=== PATIENT | male | born 1945 | race Caucasian/White ===

== ENCOUNTER 2024-01-15 13:47 | Inpatient (IN) ==
--- NOTE | 2024-01-15 14:31 | Emergency Department Note ---
History of Present Illness General Chief complaint: Abdominal Pain Stated complaint: SOB Time Seen by Provider: 01/15/24 13:48 History of Present Illness Maximum Pain Intensity: 10 Patient presenting with concern of increased dyspnea in the setting of increasing abdominal distension d/t known liver cancer and cirrhosis. Last paracentesis 2 weeks ago, typically follows at [facility] in [place]. Patient was examined at bedside and workup was ordered as indicated. Records remain pending from [facility] in [place]. Unable to perform US guided paracentesis in ED d/t insufficient pocket. Patient seen in concert with Dr. Daniele Alonso. Further documentation will be provided in ED physician note. Home Medications Medication Instructions Recorded Confirmed Type Glargine Insulin 50 unit SC DAILY 06/27/22 06/27/22 History aspirin 81 mg tablet,delayed 81 mg PO DAILY 06/27/22 06/27/22 History release gabapentin 400 mg capsule 1,200 mg PO TID 06/27/22 06/27/22 History lisinopril 10 mg tablet 10 mg PO BID 06/27/22 06/27/22 History metformin 1,000 mg tablet 1,000 mg PO BID 06/27/22 06/27/22 History metoprolol tartrate 25 mg tablet 12.5 mg PO BID 06/27/22 06/27/22 History nirmatrelvir 300 mg (150 mg See Rx Instructions PO .COMPLEX 06/27/22 Rx x2)-ritonavir 100 mg tablet,dose #30 ea pack (Paxlovid) semaglutide 0.25 mg or 0.5 mg (2 0.5 mg subcut WK 06/27/22 06/27/22 History mg/1.5 mL) subcutaneous pen injector (Ozempic) simvastatin 80 mg tablet 40 mg PO HS 06/27/22 06/27/22 History tramadol 50 mg tablet 100 mg PO TID 06/27/22 06/27/22 History vit C 226 mg-vit E 90 mg-copper 1 cap PO BID 06/27/22 06/27/22 History 0.8 mg-zinc oxide-lutein 5 mg capsule (PreserVision Lutein) nirmatrelvir 300 mg (150 mg See Rx Instructions PO .COMPLEX 06/28/22 Rx x2)-ritonavir 100 mg tablet,dose #30 ea pack (Paxlovid) Allergies Allergy/AdvReac Type Severity Reaction Status Date / Time No Known Allergies Allergy Unverified 01/15/24 15:14 Past Med/Surg History Problem List (Updated 01/15/24 @ 15:25 by Lindsey Rojas DO) Abdominal ascites Hyperlipidemia Liver mass, left lobe Tobacco use PTSD (post-traumatic stress disorder) Osteoarthritis Hypertension GERD (gastroesophageal reflux disease) Neuropathy due to type 2 diabetes mellitus Liver cancer Type 2 diabetes mellitus Medical History (Updated 01/15/24 @ 15:25 by Lindsey Rojas DO) Ascites COVID-19 Cirrhosis Social History (System 01/15/24 @ 15:14 by Julissa Cool) Smoking Status: Current every day smoker Tobacco Type: Cigarettes Feels Safe at Home: Yes Physical Exam Vital Signs Vital Signs - 24 hr 01/15/24 13:40 01/15/24 14:01 01/15/24 14:07 Temperature 36.4 C L Temperature Source Oral Pulse Rate 83 85 Pulse Rate [Right Finger] 84 Pulse Rhythm Regular Regular Pulse Rhythm [Right Finger] Regular Pulse Strength Normal Pulse Strength [Right Finger] Normal Respiratory Rate 20 20 26 H Respiratory Effort / Characteristics Non-Labored Non-Labored Respiratory Depth Normal Normal Respiratory Pattern Regular Regular Blood Pressure 135/65 Blood Pressure [Right Arm] 135/65 Blood Pressure Mean 88 Blood Pressure Mean [Right Arm] 88 Blood Pressure Position Lying Blood Pressure Position [Right Arm] Lying Pulse Oximetry 99 97 98 Oxygen Delivery Method Nasal Cannula Nasal Cannula Nasal Cannula Oxygen Flow Rate 4 4 4 Sepsis Recent Fever Within 48 Hours No Sepsis New/Unexplained Change in Mental Status No Sepsis Action Taken by Nursing No Action Required 01/15/24 14:28 01/15/24 14:35 Temperature Temperature Source Pulse Rate 83 Pulse Rate [Right Finger] 83 Pulse Rhythm Pulse Rhythm [Right Finger] Regular Pulse Strength Pulse Strength [Right Finger] Normal Respiratory Rate 19 Respiratory Effort / Characteristics Non-Labored Respiratory Depth Normal Respiratory Pattern Regular Blood Pressure Blood Pressure [Right Arm] 125/67 Blood Pressure Mean Blood Pressure Mean [Right Arm] 86 Blood Pressure Position Blood Pressure Position [Right Arm] Lying Pulse Oximetry 96 Oxygen Delivery Method Nasal Cannula Oxygen Flow Rate 4 Sepsis Recent Fever Within 48 Hours Sepsis New/Unexplained Change in Mental Status Sepsis Action Taken by Nursing See attending note. Course Administered Medications Discontinued Medications Pantoprazole Sodium 40 mg/ (Syringe) 10 mls @ 5 mls/min IV NOW ONE Stop: 01/15/24 14:20 Last Admin: 01/15/24 14:54 Dose: 5 mls/min Documented By: JUDY Insulin Glargine (Lantus Per Unit Charge) 66 units SQ NOW STA Stop: 01/15/24 15:18 Last Admin: 01/15/24 15:48 Dose: 66 units Documented By: TSERING Co-signed By: BARRY Ondansetron HCl (Ondansetron Inj 2 Mg/Ml 2 Ml Vial) 4 mg IV NOW STA Stop: 01/15/24 14:20 Last Admin: 01/15/24 14:32 Dose: 4 mg Documented By: JUDY Medical Decision Making Differential Diagnosis Abdominal ascites Liver Cirrhosis Liver Cancer Laboratory Data 01/15/24 14:21 01/15/24 14:21 Lab Results 01/15/24 Range/Units 14:21 WBC 7.73 (4.8-10.8) K/ul RBC 3.62 L (4.70-6.10) M/uL Hgb 10.0 L (14.0-18.0) g/dl Hct 31.2 L (42.0-52.0) % MCV 86.2 (80.0-100.0) fL MCH 27.6 (25.0-34.0) pg MCHC 32.1 (32.0-36.0) g/dL RDW Std Deviation 54.0 H (36.4-46.3) fL RDW Coeff of Maurice 17.1 H (11.5-14.5) % Plt Count 146 (130-400) K/uL MPV 10.6 (9.4-12.4) fL Immature Gran % (Auto) 0.4 % Neut % (Auto) 70.3 % Lymph % (Auto) 17.5 % [place] % (Auto) 10.9 % Eos % (Auto) 0.6 % Baso % (Auto) 0.3 % Neut # (Auto) 5.44 (1.40-6.50) K/uL Lymph # (Auto) 1.35 (1.20-3.40) K/uL [place] # (Auto) 0.84 H (0.11-0.59) K/uL Eos # (Auto) 0.05 (0.00-0.50) K/uL Baso # (Auto) 0.02 (0.00-0.20) K/uL Immature Gran # (Auto) 0.03 (0.01-0.20) K/uL PT 11.0 (9.0-12.0) Seconds INR 1.0 (0.9-1.1) Sodium 134 L (136-145) mmol/L Potassium 4.6 (3.5-5.1) mmol/L Chloride 102 (98-107) mmol/L Carbon Dioxide 27 (21-32) mmol/L Anion Gap 5 (3-11) BUN 29 H (6-23) mg/dl Creatinine 1.11 (0.6-1.4) mg/dl Est Cr Clr Drug Dosing 61.5 ml/min Est GFR ( Amer) 74.4 ml/min Est GFR (Non-Af Amer) 64.2 ml/min BUN/Creatinine Ratio 26.1 H (10-20) Glucose 343 H* (70-99(Fasting)) mg/dl Calcium 8.5 L (8.6-10.3) mg/dl Magnesium 2.1 (1.7-2.4) mg/dl Total Bilirubin 0.6 (0.2-1.0) mg/dl Direct Bilirubin 0.2 (0-0.2) mg/dl AST 34 (13-39) U/L ALT 28 (7-52) U/L Alkaline Phosphatase 191 H (34-104) U/L Total Protein 6.3 (6.0-8.3) gm/dl Albumin 2.9 L (3.4-5.0) gm/dl Globulin 3.4 (2.5-4.0) gm/dl Albumin/Globulin Ratio 0.9 (0.9-2) Imaging Data Radiologist's Impression: Chest X-Ray 01/15/24 14:00 XR chest 2V PA/lateral HISTORY: 78 years-old Male Dyspnea acute shortness of breath COMPARISON: 06/27/2022 TECHNIQUE: AP and lateral views of the chest FINDINGS: Hypoinflation. Heart size upper limits of normal in size. Bronchovascular crowding. No pneumothorax or pleural effusion. The bones appear intact. IMPRESSION: Hypoinflation without acute process identified. ACT 112: Negative or not required by law. The above report was generated using voice recognition software. It may contain grammatical, syntax or spelling errors. Electronically signed by: Nestor Smith M.D. 01/15/2024 3:53 PM KUB X-Ray 01/15/24 14:00 KUB CLINICAL HISTORY: Ascites/Abdominal Pain COMPARISON STUDY: None. FINDINGS: The bowel gas pattern is normal. The amount of stool is within normal limits. There is moderate vascular calcification. A few small peripherally calcified densities within the abdomen and pelvis are benign. IMPRESSION: No evidence for a bowel obstruction. ACT 112: Negative or not required by law. Electronically signed by: Daryl Mercado M.D. 01/15/2024 3:32 PM Abdomen Ultrasound 01/15/24 14:26 US abdomen ltd ascites CLINICAL HISTORY: Marking for Paracentesis in ED COMPARISON STUDY: None. FINDINGS: Transabdominal scanning of the abdomen was performed with telemarketing representative images submitted. There is a small amount of ascites seen scattered throughout the abdomen. This was not marked for paracentesis due to the lack of an adequate sized pocket. IMPRESSION: Small amount of ascites. ACT 112: Negative or not required by law. Electronically signed by: Mack Hadley M.D. 01/15/2024 3:25 PM MDM Narrative See attending note. Impression & Plan Ascites Discharge Plan Forms Stand Alone Forms: My [facility] Prescriptions Prescriptions: No Action gabapentin 400 mg Capsule 1,200 mg PO TID aspirin [Aspir-Low] 81 mg Tablet,Delayed Release (Dr/Ec) 81 mg PO DAILY Rx Instructions: PER [facility] simvastatin 80 mg Tablet 40 mg PO HS tramadol 50 mg Tablet 100 mg PO TID metformin 1,000 mg Tablet 1,000 mg PO BID lisinopril 10 mg Tablet 10 mg PO BID metoprolol tartrate 25 mg Tablet 12.5 mg PO BID PreserVision Lutein 226-90-0.8-5 mg Capsule 1 cap PO BID Ozempic 0.25 mg or 0.5 mg(2 mg/1.5 mL) Pen Injector 0.5 mg SUBCUT WK Glargine Insulin 50 unit SC DAILY Paxlovid 300 mg (150 mg x 2)-100 mg tablets,dose pack See Rx Instructions .ROUTE .COMPLEX Qty: 30 0RF Rx Instructions: take TWO 150 mg tablets of nirmatrelvir with ONE 100 mg tablet of ritonavir twice daily for 5 days Paxlovid 300 mg (150 mg x 2)-100 mg tablets,dose pack See Rx Instructions .ROUTE .COMPLEX Qty: 30 0RF Rx Instructions: take TWO 150 mg tablets of nirmatrelvir with ONE 100 mg tablet of ritonavir twice daily for 5 days Referrals Referrals: PCP,NO [Primary Care Provider] - Resident Activity Tracking Resident Involvement: Resident Care Provided Care Provided: Adult Hospital Medicine
[2024-01-15 14:32] LABS: Basophils # (auto) 0.02 K/uL (0.00-0.20); Basophils % (auto) 0.3 %; Eosinophils # (auto) 0.05 K/uL (0.00-0.50); Eosinophils % (auto) 0.6 %; Hematocrit (blood only) 31.2 % (42.0-52.0); Immature Granulocytes # (auto) 0.03 K/uL (0.01-0.20); Immature Granulocytes % (auto) 0.4 %; Lymphocytes # (auto) 1.35 K/uL (1.20-3.40); Lymphocytes % (auto) 17.5 %; Mean Corpuscular Hemoglobin 27.6 pg (25.0-34.0); Mean Corpuscular Hgb Conc 32.1 g/dL (32.0-36.0); Mean Corpuscular Volume 86.2 fL (80.0-100.0); Mean Platelet Volume 10.6 fL (9.4-12.4); Monocytes # (auto) 0.84 K/uL (0.11-0.59); Monocytes % (auto) 10.9 %; Neutrophils # (auto) 5.44 K/uL (1.40-6.50); Neutrophils % (auto) 70.3 %; Platelet Count 146 K/uL (130-400); RDW Coefficient of Variation 17.1 % (11.5-14.5); Red Blood Count 3.62 M/uL (4.70-6.10); White Blood Count 7.73 K/ul (4.8-10.8)
[2024-01-15] MEDS: ONDANSETRON INJ 2 MG/ML 2 ML VIAL IV STA (14:32)
--- NOTE | 2024-01-15 14:42 | Emergency Department Note ---
Impression & Plan Ascites, Abdominal pain, SOB (shortness of breath) ED Provider Note NAME: VENKAT SEGOVIA AGE: 78 SEX: M : 1945 ARRIVES VIA: Ambulance INFORMANT: Patient, ED PROVIDER(S): Latrell Alonso DO CHIEF COMPLAINT: Abdominal pain HPI: The patient is a 78-year-old male who presented to the emergency department for abdominal pain and distention. The patient has a history of liver failure and cirrhosis. He has a history of ascites and multiple paracentesis in the past. He has been noticing worsening abdominal distention. He describes no fever but does note some abdominal pain. The patient called 911 because he felt as though he was having difficulty breathing because of the amount of ascites. He denies having any chest pain at this time. He denies having any black stool. ROS: See above HPI for pertinent positives & negatives. A total of 10 systems reviewed and were otherwise negative. PAST MEDICAL HISTORY: See Below PAST SURGICAL HISTORY: See Below FAMILY HISTORY: See Below SOCIAL HISTORY: See Below HOME MEDICATIONS: See Below ALLERGIES: See Below VITALS: See Below PHYSICAL EXAMINATION: GENERAL: Patient is awake alert in no acute distress patient is resting comfortably and showing no signs of anxiety EYES: The conjunctivae are clear. The pupils are round and reactive. EARS, NOSE, MOUTH AND THROAT: The nose is without any evidence of any deformity. Mucous membranes are moist. Tongue is midline. NECK: The neck is nontender and supple. RESPIRATORY: Normal respiratory effort is noted there is no evidence of wheezing rhonchi or rales CARDIOVASCULAR: Regular rate and rhythm noted there no murmurs rubs or gallops normal S1 normal S2. GASTROINTESTINAL: Abdomen was distended. There was diffuse tenderness noted but no guarding or rigidity. MUSCULOSKELETAL/EXTREMITIES: There is no evidence of gross deformity full range of motion is noted in the hips and shoulders. SKIN: Skin was warm and dry. Trace pedal edema was noted bilaterally. NEUROLOGIC: Patient is awake alert and oriented x3 MEDICAL DECISION MAKING: The patient is a 78-year-old male who presented to the emergency department for an evaluation of abdominal pain and difficulty breathing. The patient is a history of cirrhosis and ascites. He has a history of previous paracentesis. The patient had an ultrasound but no significant pocket of fluid was located. The patient was having significant symptoms with his ascites despite not having a large amount. I discussed patient's laboratory and radiographic studies with him. We did discuss his case with interventional radiology. They state they would be able to do a drainage of his ascites tomorrow morning. I feel would be prudent to have this done under interventional radiology given the patient's findings on ultrasound today. The case was discussed with the on-call [facility] hospitalist. Triage Nursing notes reviewed. Prior medical records reviewed Vital Signs: reviewed and remarkable for no significant abnormalities Differential diagnosis: Etiologies such as appendicitis, diverticulitis, obstruction, inflammatory bowel disease, renal colic, PUD, biliary pathology, pancreatitis, mesenteric ischemia, aortic pathology, infections, genitourinary, UTI, perforated viscus, as well as others were entertained. ER treatment provided: See below Diagnostics interpreted by me: ECG: EKG was obtained in the emergency department. My interpretation is sinus rhythm at 85 bpm. First-degree AV block was noted. Nonspecific interventricular conduction delay with anterior Q waves was noted. No previous tracing was available. Cardiac Monitoring: An order was placed for continuous cardiac monitoring. The monitor shows a rate of 82 bpm with sinus rhythm. Laboratory studies: As stated above and show below. Imaging studies: See below. Radiographic imaging was reviewed by myself Consultation(s): We discussed this case with Dr. Regan who is on-call for the [facility] hospitalist group. Past Med/Surg History Problem List (Updated 01/15/24 @ 18:23 by Latrell Alonso DO) SOB (shortness of breath) (Acute) Abdominal pain (Acute) Ascites (Acute) Abdominal ascites Hyperlipidemia Liver mass, left lobe Tobacco use PTSD (post-traumatic stress disorder) Osteoarthritis Hypertension GERD (gastroesophageal reflux disease) Neuropathy due to type 2 diabetes mellitus Liver cancer Type 2 diabetes mellitus Medical History (Updated 01/15/24 @ 18:23 by Latrell Alonso DO) Ascites COVID-19 Cirrhosis Social History (System 01/15/24 @ 15:14 by Julissa Cool) Smoking Status: Current every day smoker Tobacco Type: Cigarettes Feels Safe at Home: Yes Allergies Allergies Allergy/AdvReac Type Severity Reaction Status Date / Time No Known Allergies Allergy Unverified 01/15/24 15:14 Home Meds Home Medications Medication Instructions Recorded Confirmed Semaglutide 1mg/0.75 Ml 1 dose SC .WEEKLY 01/15/24 01/15/24 Thc Gummies 1 tab PO DIRECTED PRN Pain 01/15/24 01/15/24 capsaicin 0.025 % topical cream 1 applic topical BID PRN .flare up 01/15/24 01/15/24 furosemide 40 mg tablet 40 mg PO DAILY 01/15/24 01/15/24 insulin glargine 100 unit/mL (3 66 unit subcut DAILY 01/15/24 01/15/24 mL) subcutaneous pen (Lantus Solostar U-100 Insulin) lactulose 10 gram/15 mL oral 20 g PO QID 01/15/24 01/15/24 solution metformin 1,000 mg tablet 1,000 mg PO BID 01/15/24 01/15/24 metoprolol tartrate 25 mg tablet 12.5 mg PO BID 01/15/24 01/15/24 naloxone 8 mg/actuation nasal spray 1 spray intranasal DIRECTED PRN 01/15/24 01/15/24 .opiod od ondansetron HCl 8 mg tablet 4 mg PO Q8 PRN Nausea 01/15/24 01/15/24 oxycodone 5 mg tablet 5 mg PO Q6H PRN Pain 01/15/24 01/15/24 polyethylene glycol 3350 17 gram 17 g PO DAILY 01/15/24 01/15/24 oral powder packet (Miralax) pregabalin 150 mg capsule 150 mg PO BID 01/15/24 01/15/24 sennosides 8.6 mg tablet 17.2 mg PO BID 01/15/24 01/15/24 simvastatin 80 mg tablet 40 mg PO HS 01/15/24 01/15/24 spironolactone 100 mg tablet 100 mg PO DAILY 01/15/24 01/15/24 vitamins A,C,M-pgcx-tiqlun 2,148 1 tab PO BID 01/15/24 01/15/24 mcg-113 mg-45 mg-17.4 mg tablet (PreserVision AREDS) Results & Data (ED) Vital Signs Vital Signs - 24 hr 01/15/24 13:40 01/15/24 14:01 01/15/24 14:07 Temperature 36.4 C L Temperature Source Oral Pulse Rate 83 85 Pulse Rate [Right Finger] 84 Pulse Rate from SpO2 Sensor Pulse Rhythm Regular Regular Pulse Rhythm [Right Finger] Regular Pulse Strength Normal Pulse Strength [Right Finger] Normal Respiratory Rate 20 20 26 H Respiratory Effort / Characteristics Non-Labored Non-Labored Respiratory Depth Normal Normal Respiratory Pattern Regular Regular Blood Pressure 135/65 Blood Pressure [Right Arm] 135/65 Blood Pressure Mean 88 Blood Pressure Mean [Right Arm] 88 Blood Pressure Position Lying Blood Pressure Position [Right Arm] Lying Pulse Oximetry 99 97 98 Oxygen Delivery Method Nasal Cannula Nasal Cannula Nasal Cannula Oxygen Flow Rate 4 4 4 Sepsis Recent Fever Within 48 Hours No Sepsis New/Unexplained Change in Mental Status No Sepsis Action Taken by Nursing No Action Required 01/15/24 14:28 01/15/24 14:35 01/15/24 16:00 Temperature Temperature Source Pulse Rate 83 84 Pulse Rate [Right Finger] 83 Pulse Rate from SpO2 Sensor 85 Pulse Rhythm Pulse Rhythm [Right Finger] Regular Pulse Strength Pulse Strength [Right Finger] Normal Respiratory Rate 19 22 Respiratory Effort / Characteristics Non-Labored Respiratory Depth Normal Respiratory Pattern Regular Blood Pressure Blood Pressure [Right Arm] 125/67 Blood Pressure Mean Blood Pressure Mean [Right Arm] 86 Blood Pressure Position Blood Pressure Position [Right Arm] Lying Pulse Oximetry 96 100 Oxygen Delivery Method Nasal Cannula Nasal Cannula Oxygen Flow Rate 4 Sepsis Recent Fever Within 48 Hours Sepsis New/Unexplained Change in Mental Status Sepsis Action Taken by Nursing 01/15/24 17:00 01/15/24 18:17 Temperature Temperature Source Pulse Rate 80 82 Pulse Rate [Right Finger] Pulse Rate from SpO2 Sensor 78 Pulse Rhythm Pulse Rhythm [Right Finger] Pulse Strength Pulse Strength [Right Finger] Respiratory Rate 16 Respiratory Effort / Characteristics Respiratory Depth Respiratory Pattern Blood Pressure Blood Pressure [Right Arm] Blood Pressure Mean Blood Pressure Mean [Right Arm] Blood Pressure Position Blood Pressure Position [Right Arm] Pulse Oximetry 100 Oxygen Delivery Method Nasal Cannula Oxygen Flow Rate Sepsis Recent Fever Within 48 Hours Sepsis New/Unexplained Change in Mental Status Sepsis Action Taken by [facility] Medications Current Medication List: was personally reviewed by me Laboratory Data Attestation: I reviewed the patient's lab results. 01/15/24 14:21 01/15/24 14:21 Lab Results 01/15/24 01/15/24 Range/Units 14:21 18:01 WBC 7.73 (4.8-10.8) K/ul RBC 3.62 L (4.70-6.10) M/uL Hgb 10.0 L (14.0-18.0) g/dl Hct 31.2 L (42.0-52.0) % MCV 86.2 (80.0-100.0) fL MCH 27.6 (25.0-34.0) pg MCHC 32.1 (32.0-36.0) g/dL RDW Std Deviation 54.0 H (36.4-46.3) fL RDW Coeff of Maurice 17.1 H (11.5-14.5) % Plt Count 146 (130-400) K/uL MPV 10.6 (9.4-12.4) fL Immature Gran % (Auto) 0.4 % Neut % (Auto) 70.3 % Lymph % (Auto) 17.5 % [place] % (Auto) 10.9 % Eos % (Auto) 0.6 % Baso % (Auto) 0.3 % Neut # (Auto) 5.44 (1.40-6.50) K/uL Lymph # (Auto) 1.35 (1.20-3.40) K/uL [place] # (Auto) 0.84 H (0.11-0.59) K/uL Eos # (Auto) 0.05 (0.00-0.50) K/uL Baso # (Auto) 0.02 (0.00-0.20) K/uL Immature Gran # (Auto) 0.03 (0.01-0.20) K/uL PT 11.0 (9.0-12.0) Seconds INR 1.0 (0.9-1.1) Sodium 134 L (136-145) mmol/L Potassium 4.6 (3.5-5.1) mmol/L Chloride 102 (98-107) mmol/L Carbon Dioxide 27 (21-32) mmol/L Anion Gap 5 (3-11) BUN 29 H (6-23) mg/dl Creatinine 1.11 (0.6-1.4) mg/dl Est Cr Clr Drug Dosing 61.5 ml/min Est GFR ( Amer) 74.4 ml/min Est GFR (Non-Af Amer) 64.2 ml/min BUN/Creatinine Ratio 26.1 H (10-20) Glucose 343 H* (70-99(Fasting)) mg/dl POC Glucose 318 H* (70-99) mg/dl Calcium 8.5 L (8.6-10.3) mg/dl Magnesium 2.1 (1.7-2.4) mg/dl Total Bilirubin 0.6 (0.2-1.0) mg/dl Direct Bilirubin 0.2 (0-0.2) mg/dl AST 34 (13-39) U/L ALT 28 (7-52) U/L Alkaline Phosphatase 191 H (34-104) U/L Total Protein 6.3 (6.0-8.3) gm/dl Albumin 2.9 L (3.4-5.0) gm/dl Globulin 3.4 (2.5-4.0) gm/dl Albumin/Globulin Ratio 0.9 (0.9-2) Administered Medications Discontinued Medications Pantoprazole Sodium 40 mg/ (Syringe) 10 mls @ 5 mls/min IV NOW ONE Stop: 01/15/24 14:20 Last Admin: 01/15/24 14:54 Dose: 5 mls/min Documented By: JUDY Insulin Glargine (Lantus Per Unit Charge) 66 units SQ NOW STA Stop: 01/15/24 15:18 Last Admin: 01/15/24 15:48 Dose: 66 units Documented By: TSERING Co-signed By: BARRY Ondansetron HCl (Ondansetron Inj 2 Mg/Ml 2 Ml Vial) 4 mg IV NOW STA Stop: 01/15/24 14:20 Last Admin: 01/15/24 14:32 Dose: 4 mg Documented By: JUDY Imaging Data Attestation: I personally reviewed and interpreted this imaging study as follows: My Impression: 1 view chest x-ray was obtained in the emergency department. My interpretation is no free air or definite infiltrate, final report below. CT of the abdomen and pelvis was obtained. My interpretation is ascites noted especially in the right upper quadrant, there was no signs of bowel obstruction, final report pending. Radiologist's Impression: Chest X-Ray 01/15/24 14:00 XR chest 2V PA/lateral HISTORY: 78 years-old Male Dyspnea acute shortness of breath COMPARISON: 06/27/2022 TECHNIQUE: AP and lateral views of the chest FINDINGS: Hypoinflation. Heart size upper limits of normal in size. Bronchovascular crowding. No pneumothorax or pleural effusion. The bones appear intact. IMPRESSION: Hypoinflation without acute process identified. ACT 112: Negative or not required by law. The above report was generated using voice recognition software. It may contain grammatical, syntax or spelling errors. Electronically signed by: Nestor Smith M.D. 01/15/2024 3:53 PM KUB X-Ray 01/15/24 14:00 KUB CLINICAL HISTORY: Ascites/Abdominal Pain COMPARISON STUDY: None. FINDINGS: The bowel gas pattern is normal. The amount of stool is within normal limits. There is moderate vascular calcification. A few small peripherally calcified densities within the abdomen and pelvis are benign. IMPRESSION: No evidence for a bowel obstruction. ACT 112: Negative or not required by law. Electronically signed by: Daryl Mercado M.D. 01/15/2024 3:32 PM Abdomen Ultrasound 01/15/24 14:26 abdomen ltd ascites CLINICAL HISTORY: Marking for Paracentesis in ED COMPARISON STUDY: None. FINDINGS: Transabdominal scanning of the abdomen was performed with patient representative images submitted. There is a small amount of ascites seen scattered throughout the abdomen. This was not marked for paracentesis due to the lack of an adequate sized pocket. IMPRESSION: Small amount of ascites. ACT 112: Negative or not required by law. Electronically signed by: Mack Hadley M.D. 01/15/2024 3:25 PM Discharge Plan Visit Data Chief Complaint: Abdominal Pain Stated Complaint: SOB ED Provider: Latrell Alonso ED Midlevel Provider: Lindsey Rojas Discharge Problem: Ascites, Abdominal pain, SOB (shortness of breath) Patient Disposition: Being Evaluated by Hospitalist Forms Stand Alone Forms: My [facility] [employer] Prescriptions Prescriptions: No Action furosemide 40 mg Tablet 40 mg PO DAILY sennosides 8.6 mg Tablet 17.2 mg PO BID polyethylene glycol 3350 [Miralax] 17 gram Powder In Packet 17 g PO DAILY ondansetron HCl 8 mg Tablet 4 mg PO Q8 PRN (Reason: Nausea) spironolactone 100 mg Tablet 100 mg PO DAILY simvastatin 80 mg Tablet 40 mg PO HS metformin 1,000 mg Tablet 1,000 mg PO BID capsaicin 0.025 % Cream 1 applic TOPICAL BID PRN (Reason: .flare up) Rx Instructions: do not wash area for at least 30 min after application oxycodone [Roxicodone] 5 mg Tablet 5 mg PO Q6H PRN (Reason: Pain) metoprolol tartrate 25 mg Tablet 12.5 mg PO BID lactulose 10 gram/15 mL Solution 20 g PO QID Rx Instructions: Has been taking less due to to loose stool. pregabalin 150 mg Capsule 150 mg PO BID insulin glargine [Lantus Solostar U-100 Insulin] 100 unit/mL (3 mL) Insulin Pen 66 unit SUBCUT DAILY PreserVision AREDS 2,148 mcg-113 mg-45 mg-17.4mg Tablet 1 tab PO BID Rx Instructions: administer with AM and PM meals naloxone 8 mg/actuation [place],Non-Aerosol 1 spray INTRANASAL DIRECTED PRN (Reason: .opiod od) Semaglutide 1mg/0.75 Ml 1 dose SC .WEEKLY Rx Instructions: Q friday Thc Gummies 1 tab PO DIRECTED PRN (Reason: Pain) Referrals Referrals: PCP,NO [Physician] - Discharge Problem: Ascites Qualifiers: Ascites type: other type Qualified Code(s): R18.8 - Other ascites Abdominal pain Qualifiers: Abdominal location: generalized Qualified Code(s): R10.84 - Generalized abdominal pain
[2024-01-15] MEDS: PANTOprazole 40 MG in SYRINGE 0 ML IV ONE (14:54)
[2024-01-15 14:58] LABS: Albumin Globulin Ratio 0.9 (0.9-2); Albumin Level 2.9 gm/dl (3.4-5.0); BUN Creatinine Ratio 26.1 (10-20); Bilirubin Direct 0.2 mg/dl (0-0.2); Bilirubin,Total 0.6 mg/dl (0.2-1.0); Calcium 8.5 mg/dl (8.6-10.3); Creatinine Clr Calc Pharmacy 61.5 ml/min; Est GFR (African American) 74.4 ml/min; Est GFR (Non-African American) 64.2 ml/min; Globulin 3.4 gm/dl (2.5-4.0); Magnesium 2.1 mg/dl (1.7-2.4); Potassium 4.6 mmol/L (3.5-5.1); Total Protein 6.3 gm/dl (6.0-8.3)
--- NOTE | 2024-01-15 15:27 | Ultrasound Report ---
US abdomen ltd ascites CLINICAL HISTORY: Marking for Paracentesis in ED COMPARISON STUDY: None. FINDINGS: Transabdominal scanning of the abdomen was performed with agency service representative images submitted. There is a small amount of ascites seen scattered throughout the abdomen. This was not marked for par acentesis due to the lack of an adequate sized pocket. IMPRESSION: Small amount of ascites. ACT 112: Negative or not required by law. Electronically signed by: Mack Hadley M.D. 01/15/2024 3:25 PM
--- NOTE | 2024-01-15 15:33 | XRay Report ---
KUB CLINICAL HISTORY: Ascites/Abdominal Pain COMPARISON STUDY: None. FINDINGS: The bowel gas pattern is normal. The amount of stool is within normal limits. There is mode rate vascular calcification. A few small peripherally calcified densities within the abdomen and pelv is are benign. IMPRESSION: No evidence for a bowel obstruction. ACT 112: Negative or not required by law. Electronically signed by: Daryl Mercado M.D. 01/15/2024 3:32 PM
[2024-01-15] MEDS: LANTUS PER UNIT CHARGE SQ STA (15:48)
--- NOTE | 2024-01-15 15:54 | XRay Report ---
XR chest 2V PA/lateral HISTORY: 78 years-old Male Dyspnea acute shortness of breath COMPARISON: 06/27/2022 TECHNIQUE: AP and lateral views of the chest FINDINGS: Hypoinflation. Heart size upper limits of normal in size. Bronchovascular crowding. No pneumothorax o r pleural effusion. The bones appear intact. IMPRESSION: Hypoinflation without acute process identified. ACT 112: Negative or not required by law. The above report was generated using voice recognition software. It may contain grammatical, syntax o r spelling errors. Electronically signed by: Nestor Smith M.D. 01/15/2024 3:53 PM
[2024-01-15] MEDS ORDERED: GLUCOSE 40% GEL 15 GM TUBE PO PRN (17:33)
[2024-01-15] MEDS ORDERED: GLUCAGON FOR INJ 1 MG VIAL SQ PRN (17:33)
[2024-01-15] MEDS ORDERED: DEXTROSE 50% 50 ML SYRINGE IV PRN (17:33)
[2024-01-15] MEDS ORDERED: CARBOHYDRATES FOR HYPOGLYCEMIA PO PRN (17:33)
[2024-01-15] MEDS ORDERED: GLUCOSE 10 TAB/TUBE PO PRN (17:33)
--- NOTE | 2024-01-15 17:41 | History & Physical Report ---
Date of Service January 15, 2024 Assessment & Plan (1) Liver cancer: Plan: Abdominal pain x 1 month Patient recently hospitalized at AL in [place] and diagnosed with nonoperable, primary left lobe liver cancer Requested records; unavailable at time of admission Patient had an EGD done at that time, which daughter reports was negative for esophageal varices Paracentesis x 2; he reported initial relief with drainage, but then fluid would recur accumulate within 3-4 hours and symptoms would return Fluid analysis did not reveal SBP at that time, per daughter A/P CT re-demonstrated 5.4 cm livermass; main portal vein appears to be thrombosed Goals of care discussion at the bedside; patient is clear that he would like to focus on quality of life over quantity, and that his goals to meet goals are to be comfortable and at home Palliative care consult appreciated Oncology consult appreciated Oxycodone as needed for pain Continue pregabalin BID Continue lactulose QID A.m. CBC, CMP, PT/INR, mag (2) Abdominal ascites: Plan: IR consulted for paracentesis (morning of 01/15 if possible) Hold Lasix, spironolactone prior to paracentesis, then can resume pending BP (3) Portal vein thrombosis: Plan: Not currently on blood thinners Limited records from [facility] show that portal vein thrombosis was present on 12/30/2023; unclear why anticoagulation was not provided at that time (records from [facility] are still pending) Will defer blood thinners temporarily in the setting of paracentesis, then plan to start if indicated (4) SOB (shortness of breath): Plan: Patient reports he feels like the fluid in the stomach is pressing down on his lungs Continuous pulse oximetry Supplemental oxygen as needed to maintain SpO2 >94% (5) Type 2 diabetes mellitus: Plan: No A1c on file Hold metformin, semaglutide Patient reports he takes Lantus 66 units HS Continue Lantus 66 daily + SSI while inpatient Clear liquid diet for now BSG ACHS Adjust regimen as needed (6) Tobacco use: Plan: Current everyday tobacco cigarette smoker Patient declines nicotine patch at time of admission (7) Hypertension: Plan: Continue metoprolol (8) GERD (gastroesophageal reflux disease): Plan [facility] Clear liquid diet, then n.p.o. at midnight for paracentesis PT PPx: Teds; patient may exhibit portal vein thrombosis, will hold chemical DVT PPx in the setting of likely paracentesis on 01/15 History of Present Illness Chief Complaint: Abdominal pain, liver cancer Primary Care Provider: [facility] Anibal is a 78-year-old male with PMH of liver cancer, abdominal ascites, HLD, HLD, T2DM, GERD, HTN, osteoarthritis, and tobacco use. He presented on 01/14 for SOB and abdominal distention. Recent diagnosis of liver cancer 3 weeks ago; on December 29, he was transferred from the AL in [place] to [place] where he was hospitalized; paracentesis x 2 to have fluid removed. Patient's daughter (Beth) is at the bedside and provides most the history. She reports that he had 2 weeks of abdominal pain prior to going to the [facility]. While in [place], the patient was then diagnosed with primary liver cancer in the left lobe; nonoperable. Biopsy was taken at that time. EGD was done, and daughter reports that it came back without esophageal varices. She does not believe that portal vein thrombosis or blood thinners were discussed at that time. Upon discharge, daughter reports that the discharge paperwork was unclear and they were waiting to hear her options moving forward (chemo, palliative care, goals of care discussions). 5 days later the patient is having trouble breathing and intractable abdominal pain, so they decided to come here. The patient endorses 8/10 RLQ abdominal pain with radiation to the back; 10/10 at worst. He describes it as a stabbing pain. He has been taking THC Gummies at home for the pain, he does have oxycodone but has not been taking it. The pain is actually better when he lies on his back. Eating does not exacerbate pain. No recent change in diet. He does not weigh himself daily and is unsure of weight gain. Associated symptoms include SOB, which patient attributes to fluid in the abdomen pressing on his lungs. No supplemental oxygen at baseline; no CPAP at night. Patient took all his regular morning medications today; except for his Lantus. He lives with his son who helps to manage medications at home. He recently finished a course of Doxy. Per daughter, he has been oscillating recently between constipation and diarrhea. She also reports he has had a significant decrease in mobility over the past few weeks due to fatigue, lower extremity weakness, and dyspnea on exertion. No history of CHF to daughter's knowledge. Both the patient and patient's daughter would like to have goals of care discussion while they are in the hospital. The patient states planning that his quality of life is more important than his quantity of life, and that his most important goals at this time are to be comfortable, able to breathe, and at home with his family. SpO2 100% on 2L NC. Patient's vitals are stable at time of admission. ED course: Lantus 66u SQ Pantoprazole 40 mg IV Zofran 4 mg IV ROS: Patient endorses abdominal pain, SOB at rest and with exertion, productive cough (unsure of hemoptysis), fatigue, constipation-->diarrhea, and LE weakness. Patient denies fever, chills, night-sweats, headache, chest pain, pleuritic CP, orthopnea, melena, or blood in the urine/stool. Allergies Allergy/AdvReac Type Severity Reaction Status Date / Time No Known Allergies Allergy Unverified 01/15/24 15:14 Home Medications Medication Instructions Recorded Confirmed Type Semaglutide 1mg/0.75 Ml 1 dose SC .WEEKLY 01/15/24 01/15/24 History Thc Gummies 1 tab PO DIRECTED PRN Pain 01/15/24 01/15/24 History capsaicin 0.025 % topical cream 1 applic topical BID PRN .flare up 01/15/24 01/15/24 History furosemide 40 mg tablet 40 mg PO DAILY 01/15/24 01/15/24 History insulin glargine 100 unit/mL (3 66 unit subcut DAILY 01/15/24 01/15/24 History mL) subcutaneous pen (Lantus Solostar U-100 Insulin) lactulose 10 gram/15 mL oral 20 g PO QID 01/15/24 01/15/24 History solution metformin 1,000 mg tablet 1,000 mg PO BID 01/15/24 01/15/24 History metoprolol tartrate 25 mg tablet 12.5 mg PO BID 01/15/24 01/15/24 History naloxone 8 mg/actuation nasal spray 1 spray intranasal DIRECTED PRN 01/15/24 01/15/24 History .opiod od ondansetron HCl 8 mg tablet 4 mg PO Q8 PRN Nausea 01/15/24 01/15/24 History oxycodone 5 mg tablet 5 mg PO Q6H PRN Pain 01/15/24 01/15/24 History polyethylene glycol 3350 17 gram 17 g PO DAILY 01/15/24 01/15/24 History oral powder packet (Miralax) pregabalin 150 mg capsule 150 mg PO BID 01/15/24 01/15/24 History sennosides 8.6 mg tablet 17.2 mg PO BID 01/15/24 01/15/24 History simvastatin 80 mg tablet 40 mg PO HS 01/15/24 01/15/24 History spironolactone 100 mg tablet 100 mg PO DAILY 01/15/24 01/15/24 History vitamins A,C,J-sdxm-dgnptt 2,148 1 tab PO BID 01/15/24 01/15/24 History mcg-113 mg-45 mg-17.4 mg tablet (PreserVision AREDS) Past Med/Surg History Problem List (Updated 01/15/24 @ 19:02 by Mack Jacobo PA-C) Portal vein thrombosis SOB (shortness of breath) (Acute) Abdominal pain (Acute) Ascites (Acute) Abdominal ascites Hyperlipidemia Liver mass, left lobe Tobacco use PTSD (post-traumatic stress disorder) Osteoarthritis Hypertension GERD (gastroesophageal reflux disease) Neuropathy due to type 2 diabetes mellitus Liver cancer Type 2 diabetes mellitus Medical History (Updated 01/15/24 @ 19:02 by Mack Jacobo PA-C) Ascites COVID-19 Cirrhosis Social History (System 01/15/24 @ 15:14 by Julissa Cool) Smoking Status: Current every day smoker Tobacco Type: Cigarettes Feels Safe at Home: Yes Review of Systems Review of Systems: See HPI above Physical Exam Physical Exam: General: Moderate physical distress secondary to abdominal pain and SOB; non- toxic appearing; well-nourished; cooperative; SpO2 100% HEENT: normocephalic, atraumatic; no scleral icterus; PERRLA; vision and hearing grossly intact Neck: supple; no lymphadenopathy; trachea midline Skin: warm, dry without signs of tenting; no cyanosis; no rashes, bruising, lesions, or erythema noted CV: chest wall NTP; RRR; S1/S2 normal; no murmurs/rubs/gallops; pulses intact and symmetric at radial, DP, and PT Lungs: Mild respiratory distress; productive cough; symmetrical chest wall expansion; clear breath sounds across all lung tapia w/o adventitious sounds; no wheezing ABD: Soft, NTP in all 4 quadrants; significant abdominal ascites and distention; no rashes or bruising on the abdomen, flanks, or back; BS present; no rebound/guarding MSK: no tics or fasciculations; +2 pitting edema in lower extremities bilaterally, nonerythematous Neuro: A&Ox3; normal mood and affect; fluent speech; no focal deficits; sensation intact in the LEs b/l Results & Data Results & Data Vital Signs (Past 12 Hours) Vital Signs Temp Pulse Pulse Resp BP BP Pulse Ox 01/15/24 17:00 80 16 100 01/15/24 16:00 84 22 100 01/15/24 14:35 83 19 125/67 96 01/15/24 14:28 83 01/15/24 14:07 85 26 H 98 01/15/24 14:01 84 20 135/65 97 01/15/24 13:40 36.4 C L 83 20 135/65 99 O2 Del Method O2 Flow Rate 01/15/24 17:00 Nasal Cannula 01/15/24 16:00 Nasal Cannula 01/15/24 14:35 Nasal Cannula 4 01/15/24 14:28 01/15/24 14:07 Nasal Cannula 4 01/15/24 14:01 Nasal Cannula 4 01/15/24 13:40 Nasal Cannula 4 Laboratory Results Abnormal lab results 01/15/24 Range/Units 14:21 RBC 3.62 L (4.70-6.10) M/uL Hgb 10.0 L (14.0-18.0) g/dl Hct 31.2 L (42.0-52.0) % RDW Std Deviation 54.0 H (36.4-46.3) fL RDW Coeff of Maurice 17.1 H (11.5-14.5) % Dauphin # (Auto) 0.84 H (0.11-0.59) K/uL Sodium 134 L (136-145) mmol/L BUN 29 H (6-23) mg/dl BUN/Creatinine Ratio 26.1 H (10-20) Glucose 343 H* (70-99(Fasting)) mg/dl Calcium 8.5 L (8.6-10.3) mg/dl Alkaline Phosphatase 191 H (34-104) U/L Albumin 2.9 L (3.4-5.0) gm/dl Diagnostic Findings Chest X-Ray 01/15/24 14:00 XR chest 2V PA/lateral HISTORY: 78 years-old Male Dyspnea acute shortness of breath COMPARISON: 06/27/2022 TECHNIQUE: AP and lateral views of the chest FINDINGS: Hypoinflation. Heart size upper limits of normal in size. Bronchovascular crowding. No pneumothorax or pleural effusion. The bones appear intact. IMPRESSION: Hypoinflation without acute process identified. ACT 112: Negative or not required by law. The above report was generated using voice recognition software. It may contain grammatical, syntax or spelling errors. Electronically signed by: Nestor Smith M.D. 01/15/2024 3:53 PM KUB X-Ray 01/15/24 14:00 KUB CLINICAL HISTORY: Ascites/Abdominal Pain COMPARISON STUDY: None. FINDINGS: The bowel gas pattern is normal. The amount of stool is within normal limits. There is moderate vascular calcification. A few small peripherally calcified densities within the abdomen and pelvis are benign. IMPRESSION: No evidence for a bowel obstruction. ACT 112: Negative or not required by law. Electronically signed by: Daryl Mercado M.D. 01/15/2024 3:32 PM Abdomen Ultrasound 01/15/24 14:26 US abdomen ltd ascites CLINICAL HISTORY: Marking for Paracentesis in ED COMPARISON STUDY: None. FINDINGS: Transabdominal scanning of the abdomen was performed with access services representative images submitted. There is a small amount of ascites seen scattered throughout the abdomen. This was not marked for paracentesis due to the lack of an adequate sized pocket. IMPRESSION: Small amount of ascites. ACT 112: Negative or not required by law. Electronically signed by: Mack Hadley M.D. 01/15/2024 3:25 PM ECG Additional Comments: ECG revealed Code Status & VTE Plan Code Status DNR/DNI (Discussed with patient and patient's daughter/POA at bedside) VTE Prophylaxis Plan VTE Prophylaxis will be ordered: Yes Supervising Physician Co-Signing Physician Notes Patient seen and examined, chart reviewed, case discussed with Mack Jacobo PA-C and I agree with the assessment and plan as above except as otherwise noted Labs and images reviewed Anibal is a 78yo M with a PMHx of ascites, liver cancer who follows with the [facility] in [place]. Presented to [facility] with abdominal pain and increasing abdominal distension. He is seen at the bedside conjunction with PA, patient's daughters present at time of visit. He presents to [facility] as he was diagnosed with a large inoperable liver mass 5 days ago but had not heard any plan or update and has had progressive abdominal swelling and [facility]. He reports [facility] and was found to have a very large left-sided liver mass which was inoperable. A biopsy was taken, which confirmed primary liver cancer although he does not know further details. Patient had a paracentesis which did significantly improve his breathing and made him feel better, however did not have durable relief from this and reports he had fluid reaccumulation and felt generally poor after only a couple of hours. He is seen at the bedside with his daughter and notes that his primary goal is to relieve the pain in his abdomen. Reviewed his care plan and he is clear that his primary goal is comfort, and that he is not particularly interested in attempting to extend or prolong his life if it comes at any cost of the quality. He would be interested in hearing about any potential nonsurgical options for treatment of his cancer, but again his primary goal is simply feeling better and relieving pain. They would like to meet with palliative care while inpatient, have done a some research on palliative/hospice. They are interested in a second opinion from our oncology care around potential best case/worst-case scenarios if he were to pursue any type of treatment. This with patient and daughter and they are aware liver cancer is complex and generally requires a multidisciplinary approach, and that outpatient workup for this is typical and takes time. Expresses appreciation understanding of this. Limited records from [facility] last visit are available. No documentation around biopsy results or medical decision making available at this time, complete luciano rds have been requested. Was able to review a CT scan which did show evidence of a portal vein thrombosis. Patient does not think he was aware of this, did have an EGD which they think was normal but do not have the report of them do not know the full details of. Anticoagulation was not recommended at the time of that CT scan, but do not see evidence of documented discussion or why this was not started; do not see any report of collaterals to suggest chronicity. 12/30/2023 shows main portal vein and left portal vein thrombosed with a small amount of thrombus extending into the right hepatic lobe with significant but nonocclusive thrombus extending into the superior mesenteric vein. Pending complete reports for why anticoagulation was deferred at time of diagnosis ?evidence of chronicity or high bleeding risk. Hematology following. Pending IR guided paracentesis, will temporarily defer lovenox Patient reports the think he would most like his to be able to go home and remain comfortable at home, and if possible to have an abdominal catheter/Pleurx placed so that this fluid could be drained at home. Patient notes that if he were able to do this at home under palliative care he would be much more interested to just have the fluid drained through a catheter like this and to have his pain treated symptomatically rather than pursue any type of treatment, hospitalizations and would rather treat any infections at home with oral antibiotics. IR consultation for ultrasound-guided drainage, palliative care consult and onc for second opinion are pending. No clinical signs of bleeding. INR 1.0. Does not have hyperbilirubinemia or transaminitis. While he is uncomfortable in his breathing and has pressure radiating from his abdomen he does not have any chest pressure, and he is not hypoxic. He is not tachycardic. Prior paracentesis results are not available at time of admission. He does not clinically show signs of SBP at time of admission, abdomen is firm and with pre ssure but is not focally tender and does not have rebound/rigidity. Is without warmth/erythema. He is afebrile without a leukocytosis. CTA/P in ER on admission reviewed. Small to moderate ascites. Heterogenous left hepatic lobe appearance consistent with malignancy is remonstrated. Main portal vein abnormal in appearance, consistent with previously noted thrombosis. Moderate body wall edema. Subcentimeter lung nodules. Agree with above PG Care Time/CCT Total # of Minutes Spent Total Time Spent with Patient: Total time spent is greater than 50% in coordination of care (as documented) at patient's floor/unit and/or counseling patient: [place] [address] INT INP/OBS CARE 3/75MIN Patient Type New History Comprehensive Exam Comprehensive Medical Decision Making High Complexity Diagnoses Liver cancer C22.9 Abdominal ascites R18.8 Portal vein thrombosis I81 SOB (shortness of breath) R06.02 Type 2 diabetes mellitus E11.9 Tobacco use Z72.0 Hypertension I10 GERD (gastroesophageal reflux disease) K21.9
[2024-01-15] MEDS: INSULIN ASPART PER UNIT CHARGE SC SCH (18:25)
--- NOTE | 2024-01-15 18:32 | CT Scan Report ---
ABDOMEN AND PELVIS CT WITHOUT CONTRAST CT DOSE: 1516.75 mGy.cm HISTORY: Eval ascites TECHNIQUE: Multiaxial CT images of the abdomen and pelvis were performed without contrast. A dose lo wering technique was utilized adhering to the principles of ALARA. COMPARISON STUDY: None. FINDINGS: A 3 mm nodule within the right middle lobe on image 11. A 3 mm nodule within the lingula on image 37. No pneumoperitoneum. No pneumatosis. Old bilateral rib fractures. Moderate coronary artery calcifications. 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 Moderate body wa ll edema. There is a 1 cm anterior pericardial lymph node. Heterogeneous appearance to the left hepat ic lobe which is suboptimally assessed on this noncontrast study. This raises the possibility of an i nfiltrative mass within the left hepatic lobe versus multiple masses. Dominant focal masslike hypoden sity on image 72 measures 5.4 cm. The unenhanced spleen, adrenal glands, and pancreas are unremarkabl e. There is a punctate stone within the left kidney. No right renal calculi. No ureteral calculi. No hydronephrosis. Cholelithiasis. No gallbladder wall thickening. Abnormal previous the main portal vei n raising the possibility of renal vein thrombosis. This is nondiagnostic on this noncontrast study. There are few mildly enlarged periportal lymph nodes which are nonspecific. Calcified plaque within t he normal caliber abdominal aorta. Scattered small to moderate amount of ascites. There are few scatt ered calcifications within the abdomen and pelvis. Normal bladder. Small right inguinal hernia contai dorothy fat and fluid. Colonic diverticulosis. No evidence for acute diverticulitis. No bowel wall thick ening or obstruction. Diffuse mesenteric edema is noted. IMPRESSION: 1. Small to moderate amount of scattered ascites. 2. Heterogeneous appearance to the left hepatic lobe which is suboptimally assessed on this noncontra st study. This raises the possibility of an infiltrative mass within the left hepatic lobe versus mul tiple masses. Dominant focal masslike hypodensity measures 5.4 cm. Dedicated liver ultrasound recomme nded for further evaluation. 2. Abnormal appearance to the main portal vein which may be thrombosed. This should be assessed with a dedicated duplex ultrasound of the portal vein. 4. Cholelithiasis. No gallbladder wall thickening. 5. Left-sided nephrolithiasis. No hydronephrosis. 6. No definite bowel wall thickening or obstruction. 7. Moderate body wall edema. 8. Subcentimeter nodules at the lung bases measuring 3 mm. One year follow up recommended to ensure s tability. ACT 112: Negative or not required by law. Electronically signed by: Mack Hadley M.D. 01/15/2024 6:31 PM
[2024-01-15] MEDS ORDERED: NALOXONE HCL 0.4 MG/1 ML VIAL/CARP IV PRN (21:30)
[2024-01-15] MEDS ORDERED: ONDANSETRON INJ 2 MG/ML 2 ML VIAL IV PRN (21:30)
[2024-01-15] MEDS ORDERED: CAPSAICIN CR 0.075% 60 GM TUBE EXT PRN (21:40)
[2024-01-15] MEDS: METOPROLOL TARTRATE 25 MG TAB PO SCH (22:19)
[2024-01-15] MEDS: oxyCODONE HCL IR 5 MG TAB (IMMEDIATE RELEASE) PO PRN (22:19)
[2024-01-15] MEDS: PREGABALIN 150 MG CAP PO SCH (22:19)
[2024-01-15] MEDS: SIMVASTATIN 40 MG TAB PO SCH (22:19)
[2024-01-15] MEDS: SENNA 8.6 MG TAB PO SCH (22:20)
[2024-01-15] MEDS: MELATONIN 3 MG TAB PO PRN (22:20)
[2024-01-15] MEDS: LACTULOSE SYRUP 20 GM/30 ML UDC PO SCH (22:20)
[2024-01-16 04:01] LABS: Appearance Urine Clear (Clear); Bacteria Urine Automated None Seen (None Seen); Bilirubin Urine Negative (Negative); Blood Urine Negative (Negative); Color Urine Dark Yellow; Epithelial Cell Urine Auto 0-2 /hpf (0-2); Glucose Urine UA 2+ (Negative); Ketones Urine Trace (Negative); Leukocyte Esterase Urine Trace (Negative); Nitrite Urine Negative (Negative); Protein Urine 1+ (Negative); RBC Urine Automated 0-2 /hpf (0-2); Specific Gravity Urine 1.028 (1.000-1.030); Urobilinogen Urine Negative (Negative); WBC Urine Automated 0-5 /hpf (0-5); pH Urine 5.5 (4.5-7.5)
[2024-01-16 07:53] LABS: INR 1.1 (0.9-1.1); Prothrombin Time 11.4 Seconds (9.0-12.0)
[2024-01-16 07:54] LABS: Basophils # (auto) 0.04 K/uL (0.00-0.20); Basophils % (auto) 0.6 %; Eosinophils # (auto) 0.08 K/uL (0.00-0.50); Eosinophils % (auto) 1.2 %; Hemoglobin 9.4 g/dl (14.0-18.0); Immature Granulocytes # (auto) 0.04 K/uL (0.01-0.20); Immature Granulocytes % (auto) 0.6 %; Lymphocytes # (auto) 1.13 K/uL (1.20-3.40); Mean Corpuscular Hgb Conc 30.3 g/dL (32.0-36.0); Mean Corpuscular Volume 92.3 fL (80.0-100.0); Mean Platelet Volume 10.9 fL (9.4-12.4); Monocytes # (auto) 0.87 K/uL (0.11-0.59); Monocytes % (auto) 13.1 %; Neutrophils % (auto) 67.5 %; Platelet Count 136 K/uL (130-400); RDW Standard Deviation 58.4 fL (36.4-46.3); Red Blood Count 3.36 M/uL (4.70-6.10); White Blood Count 6.66 K/ul (4.8-10.8)
[2024-01-16 08:01] LABS: Albumin Level 2.8 gm/dl (3.4-5.0); Calcium 8.4 mg/dl (8.6-10.3); Potassium 4.2 mmol/L (3.5-5.1)
[2024-01-16 08:07] LABS: Albumin Globulin Ratio 0.9 (0.9-2); BUN Creatinine Ratio 26.9 (10-20); Creatinine Clr Calc Pharmacy 72.9 ml/min; Est GFR (African American) 92.1 ml/min; Est GFR (Non-African American) 79.5 ml/min; Globulin 3.1 gm/dl (2.5-4.0); Total Protein 5.9 gm/dl (6.0-8.3)
--- NOTE | 2024-01-16 08:21 | Oncology Consultation ---
Date of Consultation January 16, 2024 Assessment & Plan (1) Liver cancer: (2) Portal vein thrombosis: Plan -Had an excessive discussion with patient in person and his daughter (Beth) over the phone. Patient not a candidate for resection. Discussed options for treatment including locoregional approach with radiation, transarterial chemoembolization. Patient has portal vein thrombosis which probably makes him a poor candidate for local regional therapy. From a systemic standpoint, options would be immunotherapy treatment with atezolizumab plus bevacizumab (overall survival of about 14 months) or durvalumab plus tremelimumab (overall survival of about 16 months). Following extensive discussion, patient indicated that he was interested in receiving systemic therapy but would want to have conversation with palliative care before making a final decision.If he decides to receive systemic therapy, he will continue follow-up with the [facility] to arrange for evaluation by interventional radiology and medical oncology. -Regarding portal vein thrombosis, will benefit from anticoagulation as long as there is no evidence of bleeding. Options for anticoagulation include Lovenox or DOAC or warfarin -Therapeutic and diagnostic paracentesis as scheduled Thank you for this consult. Oncology will sign off at this time. Patient to continue follow-up with the [facility] who arrange for outpatient oncology follow-up. Please feel free to call if you have any further questions. History of Present Illness Reason for Consultation: HCC Attending Physician: Kurtis Gloria MD History of Present Illness 78-year-old gentleman who per history was recently diagnosed with hepatocellular carcinoma. Presented with abdominal pain. CT abdomen and pelvis revealed Small to moderate amount of scattered ascites, Heterogeneous appearance to the left hepatic lobe which is suboptimally assessed on this noncontrast study. This raises the possibility of an infiltrative mass within the left hepatic lobe versus multiple masses. Dominant focal masslike hypodensity measures 5.4 cm. Dedicated liver ultrasound recommended for further evaluation and Abnormal appearance to the main portal vein which may be thrombosed. Per patient's daughter, has [facility] with cytology negative for malignancy. Allergies Allergy/AdvReac Type Severity Reaction Status Date / Time No Known Allergies Allergy Unverified 01/15/24 15:14 Home Medications Medication Instructions Recorded Confirmed Type Semaglutide 1mg/0.75 Ml 1 dose SC .WEEKLY 01/15/24 01/15/24 History Thc Gummies 1 tab PO DIRECTED PRN Pain 01/15/24 01/15/24 History capsaicin 0.025 % topical cream 1 applic topical BID PRN .flare up 01/15/24 01/15/24 History furosemide 40 mg tablet 40 mg PO DAILY 01/15/24 01/15/24 History insulin glargine 100 unit/mL (3 66 unit subcut DAILY 01/15/24 01/15/24 History mL) subcutaneous pen (Lantus Solostar U-100 Insulin) lactulose 10 gram/15 mL oral 20 g PO QID 01/15/24 01/15/24 History solution metformin 1,000 mg tablet 1,000 mg PO BID 01/15/24 01/15/24 History metoprolol tartrate 25 mg tablet 12.5 mg PO BID 01/15/24 01/15/24 History naloxone 8 mg/actuation nasal spray 1 spray intranasal DIRECTED PRN 01/15/24 01/15/24 History .opiod od ondansetron HCl 8 mg tablet 4 mg PO Q8 PRN Nausea 01/15/24 01/15/24 History oxycodone 5 mg tablet 5 mg PO Q6H PRN Pain 01/15/24 01/15/24 History polyethylene glycol 3350 17 gram 17 g PO DAILY 01/15/24 01/15/24 History oral powder packet (Miralax) pregabalin 150 mg capsule 150 mg PO BID 01/15/24 01/15/24 History sennosides 8.6 mg tablet 17.2 mg PO BID 01/15/24 01/15/24 History simvastatin 80 mg tablet 40 mg PO HS 01/15/24 01/15/24 History spironolactone 100 mg tablet 100 mg PO DAILY 01/15/24 01/15/24 History vitamins A,C,O-vlqz-dpdbkg 2,148 1 tab PO BID 01/15/24 01/15/24 History mcg-113 mg-45 mg-17.4 mg tablet (PreserVision AREDS) Patient History Medical History (Updated 01/15/24 @ 19:02 by Mack Jacobo PA-C) Ascites COVID-19 Cirrhosis Social History (System 01/15/24 @ 15:14 by Julissa Cool) Smoking Status: Current every day smoker Tobacco Type: Cigarettes Cigarettes Per Day: 2 PPD; Second Hand Exposure: Yes; Hx Alcohol Use: No Hx Substance Use: No Preferred Language: Turkish Communication Ability: Effective Band Master Required: No Beliefs That Will Affect Care: None Current Living Situation: Family Current Living Situation Comment: lives with son Other Information That Helps Us Care for You: No Feels Safe at Home: Yes Safety Concerns: Feels Safe At This Time Results & Data Vital Signs (Past 12 Hours) Vital Signs Temp Pulse Pulse Pulse Resp BP Pulse Ox 01/16/24 07:53 36.9 C 82 16 98/63 L 95 01/16/24 06:51 84 01/16/24 02:44 36.6 C 78 18 91/55 L 98 01/15/24 21:30 01/15/24 21:25 88 01/15/24 21:14 36.3 C L 94 H 22 114/70 100 01/15/24 21:02 O2 Del Method O2 Flow Rate 01/16/24 07:53 Nasal Cannula 2 01/16/24 06:51 01/16/24 02:44 Nasal Cannula 2 01/15/24 21:30 Nasal Cannula 2 01/15/24 21:25 01/15/24 21:14 Nasal Cannula 2 01/15/24 21:02 Nasal Cannula 2
[2024-01-16] MEDS ORDERED: MoRPHine SULFATE 2 MG/ML CARP IV PRN (09:09)
[2024-01-16 09:40] LABS: Ferritin 86.4 ng/ml (8-388)
[2024-01-16] MEDS: POLYETHYLENE (MIRALAX) 17 GM PACK PO SCH (10:40)
[2024-01-16] MEDS: LANTUS PER UNIT CHARGE SQ SCH (10:47)
[2024-01-16 11:05] LABS: Folate (Folic Acid),Ser orPlas 8.21 ng/ml (>5.38)
--- NOTE | 2024-01-16 11:31 | Palliative Care Consultation ---
Date of Consultation January 16, 2024 Assessment & Plan (1) Weakness generalized: (2) Dyspnea and respiratory abnormalities: (3) Palliative care by specialist: Plan Anibal was very sleepy and asked me to defer a lengthier discussion for another day. I advised him I am not here on weekends but will revisit Friday. He quickly fell back asleep, gently snoring. Thank you for allowing us to participate in the ongoing care of this patient. Please page with any additional concerns. Robert Looney DNP Director, Palliative Medicine History of Present Illness Reason for Consultation: Non-operable liver cancer;goals of care discussion Attending Physician: Kurtis Gloria MD History of Present Illness Anibal Calel is a 78yo gentleman admitted from home with increased dyspnea in the setting of increasing abdominal distension d/t known liver cancer and cirrhosis. Last paracentesis 2 weeks ago, typically follows at [facility] in [place]. He was recently diagnosed with hepatocellular carcinoma. CT abdomen and pelvis revealed Small to moderate amount of scattered ascites, Heterogeneous appearance to the left hepatic lobe which is suboptimally assessed on this noncontrast study. This raises the possibility of an infiltrative mass within the left hepatic lobe versus multiple masses. Dominant focal masslike hyp odensity measures 5.4 cm. Dedicated liver ultrasound recommended for further evaluation and Abnormal appearance to the main portal vein which may be thrombosed. Per patient's daughter, has had therapeutic and diagnostic paracentesis with the [facility] x 2 with cytology negative for malignancy. Oncology consult noted/appreciated, in part as follows: " Patient not a candidate for resection. Discussed options for treatment including locoregional approach with radiation, transarterial chemoembolization. Patient has portal vein thrombosis which probably makes him a poor candidate for local regional the [facility]. From a systemic standpoint, options would be immunotherapy treatment with atezolizumab plus bevacizumab (overall survival of about 14 months) or durvalumab plus tremelimumab (overall survival of about 16 months). Following extensive discussion, patient indicated that he was interested in receiving systemic therapy but would want to have conversation with palliative care before making a final decision.If he decides to receive systemic therapy, he will continue follow-up with the [facility] to arrange for evaluation by interventional radiology and medical oncology." Anibal is seen bedside, no family present He is sleepy and appears tired he does not engage in discussion Allergies Allergy/AdvReac Type Severity Reaction Status Date / Time No Known Allergies Allergy Unverified 01/15/24 15:14 Home Medications Medication Instructions Recorded Confirmed Type Semaglutide 1mg/0.75 Ml 1 dose SC .WEEKLY 01/15/24 01/15/24 History Thc Gummies 1 tab PO DIRECTED PRN Pain 01/15/24 01/15/24 History capsaicin 0.025 % topical cream 1 applic topical BID PRN .flare up 01/15/24 01/15/24 History furosemide 40 mg tablet 40 mg PO DAILY 01/15/24 01/15/24 History insulin glargine 100 unit/mL (3 66 unit subcut DAILY 01/15/24 01/15/24 History mL) subcutaneous pen (Lantus Solostar U-100 Insulin) lactulose 10 gram/15 mL oral 20 g PO QID 01/15/24 01/15/24 History solution metformin 1,000 mg tablet 1,000 mg PO BID 01/15/24 01/15/24 History metoprolol tartrate 25 mg tablet 12.5 mg PO BID 01/15/24 01/15/24 History naloxone 8 mg/actuation nasal spray 1 spray intranasal DIRECTED PRN 01/15/24 01/15/24 History .opiod od ondansetron HCl 8 mg tablet 4 mg PO Q8 PRN Nausea 01/15/24 01/15/24 History oxycodone 5 mg tablet 5 mg PO Q6H PRN Pain 01/15/24 01/15/24 History polyethylene glycol 3350 17 gram 17 g PO DAILY 01/15/24 01/15/24 History oral powder packet (Miralax) pregabalin 150 mg capsule 150 mg PO BID 01/15/24 01/15/24 History sennosides 8.6 mg tablet 17.2 mg PO BID 01/15/24 01/15/24 History simvastatin 80 mg tablet 40 mg PO HS 01/15/24 01/15/24 History spironolactone 100 mg tablet 100 mg PO DAILY 01/15/24 01/15/24 History vitamins A,C,N-tzkj-bpepqv 2,148 1 tab PO BID 01/15/24 01/15/24 History mcg-113 mg-45 mg-17.4 mg tablet (PreserVision AREDS) Patient History Medical History (Updated 01/16/24 @ 21:12 by Elizabeth Looney DNP) Ascites COVID-19 Cirrhosis Social History (System 01/15/24 @ 15:14 by Julissa Cool) Smoking Status: Current every day smoker Tobacco Type: Cigarettes Cigarettes Per Day: 2 PPD; Second Hand Exposure: Yes; Hx Alcohol Use: No Hx Substance Use: No Preferred Language: Lao Communication Ability: Effective Solid Waste Analyst Required: No Beliefs That Will Affect Care: None Current Living Situation: Family Current Living Situation Comment: lives with son Other Information That Helps Us Care for You: No Feels Safe at Home: Yes Safety Concerns: Feels Safe At This Time Assistive Devices: Cane and Walker Review of Systems Review of Systems: unable to obtain, pt sleepy Physical Exam Physical Exam: side lying in bed appears chronically ill distended abd, +TTP NCAT, perrla neck supple resp effort WNL, lungs sl dim s1s2 Ext gen weakness skin pale, warm Results & Data Vital Signs (Past 12 Hours) Vital Signs Temp Pulse Pulse Pulse Resp BP Pulse Ox 01/16/24 07:53 36.9 C 82 16 98/63 L 95 01/16/24 06:51 84 01/16/24 02:44 36.6 C 78 18 91/55 L 98 O2 Del Method O2 Flow Rate 01/16/24 07:53 Nasal Cannula 2 01/16/24 06:51 01/16/24 02:44 Nasal Cannula 2 Laboratory Results 01/16/24 01/16/24 01/16/24 Range/Units 19:56 16:59 10:50 WBC (4.8-10.8) K/ul RBC (4.70-6.10) M/uL Hgb (14.0-18.0) g/dl Hct (42.0-52.0) % MCV (80.0-100.0) fL MCH (25.0-34.0) pg MCHC (32.0-36.0) g/dL RDW Std Deviation (36.4-46.3) fL RDW Coeff of Maurice (11.5-14.5) % Plt Count (130-400) K/uL MPV (9.4-12.4) fL Immature Gran % (Auto) % Neut % (Auto) % Lymph % (Auto) % [place] % (Auto) % Eos % (Auto) % Baso % (Auto) % Neut # (Auto) (1.40-6.50) K/uL Lymph # (Auto) (1.20-3.40) K/uL [place] # (Auto) (0.11-0.59) K/uL Eos # (Auto) (0.00-0.50) K/uL Baso # (Auto) (0.00-0.20) K/uL Immature Gran # (Auto) (0.01-0.20) K/uL PT (9.0-12.0) Seconds INR (0.9-1.1) Sodium (136-145) mmol/L Potassium (3.5-5.1) mmol/L Chloride (98-107) mmol/L Carbon Dioxide (21-32) mmol/L Anion Gap (3-11) BUN (6-23) mg/dl Creatinine (0.6-1.4) mg/dl Est Cr Clr Drug Dosing ml/min Est GFR ( Amer) ml/min Est GFR (Non-Af Amer) ml/min BUN/Creatinine Ratio (10-20) Glucose (70-99(Fasting)) mg/dl POC Glucose 113 H 156 H 72 (70-99) mg/dl Calcium (8.6-10.3) mg/dl Magnesium (1.7-2.4) mg/dl Iron (35-175) mcg/dl TIBC (250-450) mcg/dl Unsaturated IBC (155-355) mcg/dl Transferrin % Sat (20-50) % Ferritin (8-388) ng/ml Total Bilirubin (0.2-1.0) mg/dl Direct Bilirubin (0-0.2) mg/dl AST (13-39) U/L ALT (7-52) U/L Alkaline Phosphatase (34-104) U/L Total Protein (6.0-8.3) gm/dl Albumin (3.4-5.0) gm/dl Globulin (2.5-4.0) gm/dl Albumin/Globulin Ratio (0.9-2) Lipase (11-82) U/L Vitamin B12 (180-914) pg/ml Folate (>5.38) ng/ml Urine Color Urine Appearance (Clear) Urine pH (4.5-7.5) Ur Specific [place] (1.000-1.030) Urine Protein (Negative) Urine Glucose (UA) (Negative) Urine Ketones (Negative) Urine Blood (Negative) Urine Nitrite (Negative) Urine Bilirubin (Negative) Urine Urobilinogen (Negative) Ur Leukocyte Esterase (Negative) Urine WBC (Auto) (0-5) /hpf Urine RBC (Auto) (0-2) /hpf U Hyaline Cast (Auto) (0-2) /lpf U Epithel Cells (Auto) (0-2) /hpf Urine Bacteria (Auto) (None Seen) First/Repeat Specimen Gestational Age Estimated Delivery Date Est Date Determined By Maternal Race Maternal Weight Maternal Diabetes Number of Fetuses Maternal Scrn Egg Donor Donor Age or AFP Triple Screen Prev Trisomy 21 Preg Maternal Serum AFP AFP MoM Maternal AFP Interp Family History NTD NTD Risk Assessment Maternal Scrn Comment 01/16/24 01/16/24 01/16/24 Range/Units 09:57 07:18 05:53 WBC 6.66 (4.8-10.8) K/ul RBC 3.36 L (4.70-6.10) M/uL Hgb 9.4 L (14.0-18.0) g/dl Hct 31.0 L (42.0-52.0) % MCV 92.3 D (80.0-100.0) fL MCH 28.0 (25.0-34.0) pg MCHC 30.3 L (32.0-36.0) g/dL RDW Std Deviation 58.4 H (36.4-46.3) fL RDW Coeff of Maurice 17.0 H (11.5-14.5) % Plt Count 136 (130-400) K/uL MPV 10.9 (9.4-12.4) fL Immature Gran % (Auto) 0.6 % Neut % (Auto) 67.5 % Lymph % (Auto) 17.0 % [place] % (Auto) 13.1 % Eos % (Auto) 1.2 % Baso % (Auto) 0.6 % Neut # (Auto) 4.50 (1.40-6.50) K/uL Lymph # (Auto) 1.13 L (1.20-3.40) K/uL [place] # (Auto) 0.87 H (0.11-0.59) K/uL Eos # (Auto) 0.08 (0.00-0.50) K/uL Baso # (Auto) 0.04 (0.00-0.20) K/uL Immature Gran # (Auto) 0.04 (0.01-0.20) K/uL PT 11.4 (9.0-12.0) Seconds INR 1.1 (0.9-1.1) Sodium 137 (136-145) mmol/L Potassium 4.2 (3.5-5.1) mmol/L Chloride 106 (98-107) mmol/L Carbon Dioxide 26 (21-32) mmol/L Anion Gap 5 (3-11) BUN 25 H (6-23) mg/dl Creatinine 0.93 (0.6-1.4) mg/dl Est Cr Clr Drug Dosing 72.9 ml/min Est GFR ( Amer) 92.1 ml/min Est GFR (Non-Af Amer) 79.5 ml/min BUN/Creatinine Ratio 26.9 H (10-20) Glucose 98 (70-99(Fasting)) mg/dl POC Glucose 107 H (70-99) mg/dl Calcium 8.4 L (8.6-10.3) mg/dl Magnesium 2.0 (1.7-2.4) mg/dl Iron 57 (35-175) mcg/dl TIBC 235 L (250-450) mcg/dl Unsaturated IBC 178 (155-355) mcg/dl Transferrin % Sat 24 (20-50) % Ferritin 86.4 (8-388) ng/ml Total Bilirubin 1.0 (0.2-1.0) mg/dl Direct Bilirubin (0-0.2) mg/dl AST 26 (13-39) U/L ALT 20 (7-52) U/L Alkaline Phosphatase 165 H (34-104) U/L Total Protein 5.9 L (6.0-8.3) gm/dl Albumin 2.8 L (3.4-5.0) gm/dl Globulin 3.1 (2.5-4.0) gm/dl Albumin/Globulin Ratio 0.9 (0.9-2) Lipase 9 L (11-82) U/L Vitamin B12 843 (180-914) pg/ml Folate 8.21 (>5.38) ng/ml Urine Color Urine Appearance (Clear) Urine pH (4.5-7.5) Ur Specific [place] (1.000-1.030) Urine Protein (Negative) Urine Glucose (UA) (Negative) Urine Ketones (Negative) Urine Blood (Negative) Urine Nitrite (Negative) Urine Bilirubin (Negative) Urine Urobilinogen (Negative) Ur Leukocyte Esterase (Negative) Urine WBC (Auto) (0-5) /hpf Urine RBC (Auto) (0-2) /hpf U Hyaline Cast (Auto) (0-2) /lpf U Epithel Cells (Auto) (0-2) /hpf Urine Bacteria (Auto) (None Seen) First/Repeat Specimen Pending Gestational Age Pending Estimated Delivery Date Pending Est Date Determined By Pending Maternal Race Pending Maternal Weight Pending Maternal Diabetes Pending Number of Fetuses Pending Maternal Scrn Egg Donor Pending Donor Age or Pending AFP Triple Screen Pending Prev Trisomy 21 Preg Pending Maternal Serum AFP Pending AFP MoM Pending Maternal AFP Interp Pending Family History NTD Pending NTD Risk Assessment Pending Maternal Scrn Comment Pending 01/16/24 01/15/24 01/15/24 Range/Units 03:37 23:54 19:59 WBC (4.8-10.8) K/ul RBC (4.70-6.10) M/uL Hgb (14.0-18.0) g/dl Hct (42.0-52.0) % MCV (80.0-100.0) fL MCH (25.0-34.0) pg MCHC (32.0-36.0) g/dL RDW Std Deviation (36.4-46.3) fL RDW Coeff of Maurice (11.5-14.5) % Plt Count (130-400) K/uL MPV (9.4-12.4) fL Immature Gran % (Auto) % Neut % (Auto) % Lymph % (Auto) % [place] % (Auto) % Eos % (Auto) % Baso % (Auto) % Neut # (Auto) (1.40-6.50) K/uL Lymph # (Auto) (1.20-3.40) K/uL [place] # (Auto) (0.11-0.59) K/uL Eos # (Auto) (0.00-0.50) K/uL Baso # (Auto) (0.00-0.20) K/uL Immature Gran # (Auto) (0.01-0.20) K/uL PT (9.0-12.0) Seconds INR (0.9-1.1) Sodium (136-145) mmol/L Potassium (3.5-5.1) mmol/L Chloride (98-107) mmol/L Carbon Dioxide (21-32) mmol/L Anion Gap (3-11) BUN (6-23) mg/dl Creatinine (0.6-1.4) mg/dl Est Cr Clr Drug Dosing ml/min Est GFR ( Amer) ml/min Est GFR (Non-Af Amer) ml/min BUN/Creatinine Ratio (10-20) Glucose (70-99(Fasting)) mg/dl POC Glucose 149 H 236 H (70-99) mg/dl Calcium (8.6-10.3) mg/dl Magnesium (1.7-2.4) mg/dl Iron (35-175) mcg/dl TIBC (250-450) mcg/dl Unsaturated IBC (155-355) mcg/dl Transferrin % Sat (20-50) % Ferritin (8-388) ng/ml Total Bilirubin (0.2-1.0) mg/dl Direct Bilirubin (0-0.2) mg/dl AST (13-39) U/L ALT (7-52) U/L Alkaline Phosphatase (34-104) U/L Total Protein (6.0-8.3) gm/dl Albumin (3.4-5.0) gm/dl Globulin (2.5-4.0) gm/dl Albumin/Globulin Ratio (0.9-2) Lipase (11-82) U/L Vitamin B12 (180-914) pg/ml Folate (>5.38) ng/ml Urine Color Dark Yellow Urine Appearance Clear (Clear) Urine pH 5.5 (4.5-7.5) Ur Specific [place] 1.028 (1.000-1.030) Urine Protein 1+ H (Negative) Urine Glucose (UA) 2+ H (Negative) Urine Ketones Trace H (Negative) Urine Blood Negative (Negative) Urine Nitrite Negative (Negative) Urine Bilirubin Negative (Negative) Urine Urobilinogen Negative (Negative) Ur Leukocyte Esterase Trace H (Negative) Urine WBC (Auto) 0-5 (0-5) /hpf Urine RBC (Auto) 0-2 (0-2) /hpf U Hyaline Cast (Auto) 3-5 H (0-2) /lpf U Epithel Cells (Auto) 0-2 (0-2) /hpf Urine Bacteria (Auto) None Seen (None Seen) First/Repeat Specimen Gestational Age Estimated Delivery Date Est Date Determined By Maternal Race Maternal Weight Maternal Diabetes Number of Fetuses Maternal Scrn Egg Donor Donor Age or AFP Triple Screen Prev Trisomy 21 Preg Maternal Serum AFP AFP MoM Maternal AFP Interp Family History NTD NTD Risk Assessment Maternal Scrn Comment 01/15/24 01/15/24 Range/Units 18:01 14:21 WBC 7.73 (4.8-10.8) K/ul RBC 3.62 L (4.70-6.10) M/uL Hgb 10.0 L (14.0-18.0) g/dl Hct 31.2 L (42.0-52.0) % MCV 86.2 (80.0-100.0) fL MCH 27.6 (25.0-34.0) pg MCHC 32.1 (32.0-36.0) g/dL RDW Std Deviation 54.0 H (36.4-46.3) fL RDW Coeff of Maurice 17.1 H (11.5-14.5) % Plt Count 146 (130-400) K/uL MPV 10.6 (9.4-12.4) fL Immature Gran % (Auto) 0.4 % Neut % (Auto) 70.3 % Lymph % (Auto) 17.5 % [place] % (Auto) 10.9 % Eos % (Auto) 0.6 % Baso % (Auto) 0.3 % Neut # (Auto) 5.44 (1.40-6.50) K/uL Lymph # (Auto) 1.35 (1.20-3.40) K/uL [place] # (Auto) 0.84 H (0.11-0.59) K/uL Eos # (Auto) 0.05 (0.00-0.50) K/uL Baso # (Auto) 0.02 (0.00-0.20) K/uL Immature Gran # (Auto) 0.03 (0.01-0.20) K/uL PT 11.0 (9.0-12.0) Seconds INR 1.0 (0.9-1.1) Sodium 134 L (136-145) mmol/L Potassium 4.6 (3.5-5.1) mmol/L Chloride 102 (98-107) mmol/L Carbon Dioxide 27 (21-32) mmol/L Anion Gap 5 (3-11) BUN 29 H (6-23) mg/dl Creatinine 1.11 (0.6-1.4) mg/dl Est Cr Clr Drug Dosing 61.5 ml/min Est GFR ( Amer) 74.4 ml/min Est GFR (Non-Af Amer) 64.2 ml/min BUN/Creatinine Ratio 26.1 H (10-20) Glucose 343 H* (70-99(Fasting)) mg/dl POC Glucose 318 H* (70-99) mg/dl Calcium 8.5 L (8.6-10.3) mg/dl Magnesium 2.1 (1.7-2.4) mg/dl Iron (35-175) mcg/dl TIBC (250-450) mcg/dl Unsaturated IBC (155-355) mcg/dl Transferrin % Sat (20-50) % Ferritin (8-388) ng/ml Total Bilirubin 0.6 (0.2-1.0) mg/dl Direct Bilirubin 0.2 (0-0.2) mg/dl AST 34 (13-39) U/L ALT 28 (7-52) U/L Alkaline Phosphatase 191 H (34-104) U/L Total Protein 6.3 (6.0-8.3) gm/dl Albumin 2.9 L (3.4-5.0) gm/dl Globulin 3.4 (2.5-4.0) gm/dl Albumin/Globulin Ratio 0.9 (0.9-2) Lipase (11-82) U/L Vitamin B12 (180-914) pg/ml Folate (>5.38) ng/ml Urine Color Urine Appearance (Clear) Urine pH (4.5-7.5) Ur Specific [place] (1.000-1.030) Urine Protein (Negative) Urine Glucose (UA) (Negative) Urine Ketones (Negative) Urine Blood (Negative) Urine Nitrite (Negative) Urine Bilirubin (Negative) Urine Urobilinogen (Negative) Ur Leukocyte Esterase (Negative) Urine WBC (Auto) (0-5) /hpf Urine RBC (Auto) (0-2) /hpf U Hyaline Cast (Auto) (0-2) /lpf U Epithel Cells (Auto) (0-2) /hpf Urine Bacteria (Auto) (None Seen) First/Repeat Specimen Gestational Age Estimated Delivery Date Est Date Determined By Maternal Race Maternal Weight Maternal Diabetes Number of Fetuses Maternal Scrn Egg Donor Donor Age or AFP Triple Screen Prev Trisomy 21 Preg Maternal Serum AFP AFP MoM Maternal AFP Interp Family History NTD NTD Risk Assessment Maternal Scrn Comment Diagnostic Findings Chest X-Ray 01/15/24 14:00 XR chest 2V PA/lateral HISTORY: 78 years-old Male Dyspnea acute shortness of breath COMPARISON: 06/27/2022 TECHNIQUE: AP and lateral views of the chest FINDINGS: Hypoinflation. Heart size upper limits of normal in size. Bronchovascular crowding. No pneumothorax or pleural effusion. The bones appear intact. IMPRESSION: Hypoinflation without acute process identified. ACT 112: Negative or not required by law. The above report was generated using voice recognition software. It may contain grammatical, syntax or spelling errors. Electronically signed by: Nestor Smith M.D. 01/15/2024 3:53 PM KUB X-Ray 01/15/24 14:00 KUB CLINICAL HISTORY: Ascites/Abdominal Pain COMPARISON STUDY: None. FINDINGS: The bowel gas pattern is normal. The amount of stool is within normal limits. There is moderate vascular calcification. A few small peripherally calcified densities within the abdomen and pelvis are benign. IMPRESSION: No evidence for a bowel obstruction. ACT 112: Negative or not required by law. Electronically signed by: Daryl Mercado M.D. 01/15/2024 3:32 PM Abdomen Ultrasound 01/15/24 14:26 US abdomen ltd ascites CLINICAL HISTORY: Marking for Paracentesis in ED COMPARISON STUDY: None. FINDINGS: Transabdominal scanning of the abdomen was performed with office services representative images submitted. There is a small amount of ascites seen scattered throughout the abdomen. This was not marked for paracentesis due to the lack of an adequate sized pocket. IMPRESSION: Small amount of ascites. ACT 112: Negative or not required by law. Electronically signed by: Mack Hadley M.D. 01/15/2024 3:25 PM Abdomen/Pelvis CT 01/15/24 14:[address] WITHOUT CONTRAST CT DOSE: 1516.75 mGy.cm HISTORY: Eval ascites TECHNIQUE: Multiaxial CT images of the abdomen and pelvis were performed without contrast. A dose lowering technique was utilized adhering to the principles of ALARA. COMPARISON STUDY: None. FINDINGS: A 3 mm nodule within the right middle lobe on image 11. A 3 mm nodule within the lingula on image 37. No pneumoperitoneum. No pneumatosis. Old bilateral rib fractures. Moderate coronary artery calcifications. 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 Moderate body wall edema. There is a 1 cm anterior pericardial lymph node. Heterogeneous appearance to the left hepatic lobe which is suboptimally assessed on this noncontrast study. This raises the possibility of an infiltrative mass within the left hepatic lobe versus multiple masses. Dominant focal masslike hypodensity on image 72 measures 5.4 cm. The unenhanced spleen, adrenal glands, and pancreas are unremarkable. There is a punctate stone within the left kidney. No right renal calculi. No ureteral calculi. No hydronephrosis. Cholelithiasis. No gallbladder wall thickening. Abnormal previous the main portal vein raising the possibility of renal vein thrombosis. This is nondiagnostic on this noncontrast study. There are few mildly enlarged periportal lymph nodes which are nonspecific. Calcified plaque within the normal caliber abdominal aorta. Scattered small to moderate amount of ascites. There are few scattered calcifications within the abdomen and pelvis. Normal bladder. Small right inguinal hernia containing fat and fluid. Colonic diverticulosis. No evidence for acute diverticulitis. No bowel wall thickening or obstruction. Diffuse mesenteric edema is noted. IMPRESSION: 1. Small to moderate amount of scattered ascites. 2. Heterogeneous appearance to the left hepatic lobe which is suboptimally assessed on this noncontrast study. This raises the possibility of an infiltrative mass within the left hepatic lobe versus multiple masses. Dominant focal masslike hypodensity measures 5.4 cm. Dedicated liver ultrasound recommended for further evaluation. 2. Abnormal appearance to the main portal vein which may be thrombosed. This adam uld be assessed with a dedicated duplex ultrasound of the portal vein. 4. Cholelithiasis. No gallbladder wall thickening. 5. Left-sided nephrolithiasis. No hydronephrosis. 6. No definite bowel wall thickening or obstruction. 7. Moderate body wall edema. 8. Subcentimeter nodules at the lung bases measuring 3 mm. One year follow up recommended to ensure stability. ACT 112: Negative or not required by law. Electronically signed by: Mack Hadley M.D. 01/15/2024 6:31 PM Chest CTA 01/16/24 16:23 CT ANGIOGRAPHY OF THE CHEST, PULMONARY EMBOLUS PROTOCOL CLINICAL HISTORY: hepatocellular cancer, dyspnea, eval PE/mets/etc COMPARISON STUDY: Chest radiograph January 15, 2024. TECHNIQUE: Following IV administration of 88 mL of Optiray, helical axial images of the chest were obtained utilizing the pulmonary embolus protocol. Maximal intensity projections and sagittal and coronal reformats were viewed on an independent 3D workstation. IV contrast was administered without complication. Automated exposure control was utilized for the study. A dose lowering technique was utilized adhering to the principles of ALARA. CT DOSE: 829.33 mGy.cm FINDINGS: No pulmonary emboli are identified. There is no thoracic aortic dissection. Size of the heart is normal. There is no pericardial effusion. Moderate coronary artery calcification is present. No enlarged axillary, mediastinal or hilar lymph nodes are present. There is no pneumothorax or pleural effusion. There is no consolidation to suggest pneumonia. A few tiny pulmonary nodules are noted. These include a 4 mm lingular nodule on image 114 of 237 and a 4 mm subpleural right lower lobe nodule on image 138. There are no suspicious lesions within the bony defect. Moderate upper abdominal ascites is present. Left hepatic lobe hypodense mass-like abnormalities measure up to approximately 6.8 cm. There is a gallstone within the gallbladder. Abnormal appearance of the main portal vein is again noted. IMPRESSION: 1. No pulmonary emboli identified. 2. No acute intrathoracic findings. 3. A few small low suspicion pulmonary nodules measuring up to 4 mm. A follow-up chest CT in 6 months to ensure stability is recommended. 4. Heterogeneous appearance of the left hepatic lobe with underlying masses which would be consistent with the provided history of hepatocellular carcinoma. Moderate upper abdominal ascites. Possible main portal vein thrombus. ACT 112: Negative or not required by law. Electronically signed by: Daryl Mercado M.D. 01/16/2024 5:39 PM PG Care Time/CCT Total # of Minutes Spent Total Time Spent with Patient: Total time spent is greater than 50% in coordination of care (as documented) at patient's floor/unit and/or counseling patient: I spent 65 minutes overall addressing this case: 20 min in medical data review/discussion with referring provider(s) and/or preparation for the visit 20 min in direct interaction with the patient/exam 00 min in Advance Care Planning/Goals of Care discussions as detailed above in note (must be >16min) 10 min in subsequent review and synthesis of assessment and plan 15 min communicating with other providers regarding the patient's case: primary team and nursing [place] [address] IN/OBS CONSULT LVL 4,60M Patient Type New Medical Decision Making High Complexity Diagnoses Weakness generalized R53.1 Dyspnea and respiratory abnormalities R06.00; R06.89 Palliative care by specialist Z51.5
[2024-01-16] MEDS: INSULIN ASPART PER UNIT CHARGE SC SCH (11:45)
[2024-01-16] MEDS ORDERED: LANTUS PER UNIT CHARGE SQ SCH (12:00)
--- NOTE | 2024-01-16 15:22 | Electrocardiogram Report ---
Test Reason : Blood Pressure : */* mmHG Vent. Rate : 85 BPM Atrial Rate : 85 BPM P-R Int : 222 ms QRS Dur : 124 ms QT Int : 390 ms P-R-T Axes : 79 -39 97 degrees QTcB Int : 464 ms Sinus rhythm with 1st degree A-V block Left axis deviation Left bundle branch block Abnormal ECG No previous ECGs available Confirmed by Latrell Bajwa ([id number]) on 01/16/2024 3:22:21 PM Referred By: REFERRED SELF Confirmed By: Latrell Bajwa
--- NOTE | 2024-01-16 16:26 | Hospitalist Progress Note ---
Date of Service January 16, 2024 Assessment & Plan (1) Liver cancer: Plan: left lobe of liver recent dx at [facility] was told he was not a candidate for surgical resection we do not have any of his [facility] records from [place] appreciate Dr Frias's consult appreciate Dr Looney's consult per Dr Frias could consider immunotherapy Rx for his cancer if he desired such (2) Abdominal pain: Plan: likely multifactorial - the liver mass itself causing capsular stretch and pain; ascites (if malignant); PVT; gaseous distension from QID lactulose; etc. stop lactulose consider fentanyl patch oxy prn morphine prn tylenol 1gm TID (LFTs are stable, no mention of any cirrhosis on any imaging study) (3) Abdominal ascites: Plan: likely malignancy related we do not have any records from the [facility] but, by report, fluid analysis of his peritoneal fluid did not show SBP uncertain of any cytology results from the fluid if malignant ascites that will contribute to his pain although he has reaccumulated fluid since the [facility] (he got home from the [place] earlier this week) the amount of fluid on current imaging is mild-moderate only it is odd that he only got 2-4 hours of pain relief following his taps in [place] this is not typical this would argue that other things (the liver mass itself, gaseous distension from lactulose, etc) are contributing to his pain as well if the ascites is malignant it will have poor response to diuretic therapy (exudative rather than transudative fluid does not respond well to diuretics) (4) Portal vein thrombosis: Plan: CT imaging from [facility] 12/30/23 showed PVT Imaging here highly suspicious for PVT as well Likely due to malignancy Since no procedure is planned start heparin drip, standard w/o bolus Will need to investigate with his [facility] insurance what PO anticoagulant is covered (DOACs are being used more commonly now for PVT) PVT could be contributing to his abdominal pain (5) SOB (shortness of breath): Plan: Due to o2 requirement and ongoing dyspnea elected to obtain CTA chest today - negative for PE, metastatic disease, or pneumonia Suspect he has some underlying COPD from his long-standing tobacco use Suspect he has some dyspnea due to the abdominal bloating from his intra- abdominal processes Start spiriva daily Start Breo daily O2 as needed (6) Type 2 diabetes mellitus: Plan: Hold metformin, semaglutide Patient reports he takes Lantus 66 units HS Will lower Lantus to 15 units BID to start Cont novolog SSI DM diet BSG ACHS Adjust regimen as needed (7) Tobacco use: Plan: Current everyday tobacco cigarette smoker nicotine patch 21mg/day ordered (8) Hypertension: Plan: Continue metoprolol (9) GERD (gastroesophageal reflux disease): Plan: would add PPI (10) Neuropathy due to type 2 diabetes mellitus: Plan: cont lyrica 150mg BID Plan josemanuel updated at bedside would benefit from PT/OT evals since he did poorly upon discharge to home from the [place] [facility] Admission and Anticipated Discharge Date Admission Date: January 15, 2024 Subjective patient lying in bed during the visit grandson present at bedside earlier today he had gone down to radiology for paracentesis once down in radiology he had declined the tap, telling Mr Florence from IR that if he kept needing recurrent taps he would just want a permanent tube (ie - pleurX catheter) in the abdomen patient reports ongoing dyspnea with activity this started 5-6 weeks ago typically does not have dyspnea he continues to have abdominal bloating passing flatus relieves the bloating and discomfort much of the discomfort is upper abdomen as well as b/l lower quadrants he states that the 2 previous paracentesis only gave him a few hours of relief of discomfort in his abdomen grandson states that the first tap removed about 1.5 liters 2nd tap (both done at [facility]) removed about 1 liter he isn't sure what he wants to do for his overall care plan top 2 complaints - dyspnea, and stomach/abdominal pain tele overnight wnl Review of Systems Review of Systems: gen - no fevers, no weight loss cv - no orthopnea, no edema pulm - mild cough, mild dyspnea at rest - most of his dyspnea is w/ exertion GI - no vomiting; having fluctuating stools between loose and regular; EGD at [facility] -- no varices per his recollection Physical Exam Physical Exam: gen - awake, alert, uncomfortable at times eyes - no icterus mouth - MMM neck - no JVD heart - RRR, s1 s2 lungs - left basilar rales, otherwise CTA b/l, decreased BS bases abd - distended, mildly tender high epigastric region, BS+, no masses felt, no HSM ext - no edema, pulses 2+ b/l neuro - no asterixis psych - a/o x 3 Results & Data Results & Data Vital Signs (Past 12 Hours) Vital Signs Temp Pulse Pulse Resp BP BP Pulse Ox 01/16/24 15:42 100/70 01/16/24 15:24 36.7 C 69 18 87/56 L 93 01/16/24 11:30 36.3 C L 77 18 120/72 92 01/16/24 07:53 36.9 C 82 16 98/63 L 95 01/16/24 06:51 84 O2 Del Method O2 Flow Rate 01/16/24 15:42 01/16/24 15:24 Nasal Cannula 2 01/16/24 11:30 Nasal Cannula 2 01/16/24 07:53 Nasal Cannula 2 01/16/24 06:51 Laboratory Results Abnormal lab results 01/16/24 01/16/24 01/16/24 Range/Units 05:53 07:18 16:59 RBC 3.36 L (4.70-6.10) M/uL Hgb 9.4 L (14.0-18.0) g/dl Hct 31.0 L (42.0-52.0) % MCHC 30.3 L (32.0-36.0) g/dL RDW Std Deviation 58.4 H (36.4-46.3) fL RDW Coeff of Maurice 17.0 H (11.5-14.5) % Lymph # (Auto) 1.13 L (1.20-3.40) K/uL [place] # (Auto) 0.87 H (0.11-0.59) K/uL BUN 25 H (6-23) mg/dl BUN/Creatinine Ratio 26.9 H (10-20) POC Glucose 107 H 156 H (70-99) mg/dl Calcium 8.4 L (8.6-10.3) mg/dl TIBC 235 L (250-450) mcg/dl Alkaline Phosphatase 165 H (34-104) U/L Total Protein 5.9 L (6.0-8.3) gm/dl Albumin 2.8 L (3.4-5.0) gm/dl Lipase 9 L (11-82) U/L 01/16/24 01/16/24 01/16/24 Range/Units 19:56 21:06 22:02 RBC 3.55 L (4.70-6.10) M/uL Hgb 10.0 L (14.0-18.0) g/dl Hct 31.4 L (42.0-52.0) % MCHC 31.8 L (32.0-36.0) g/dL RDW Std Deviation 54.0 H (36.4-46.3) fL RDW Coeff of Maurice 16.7 H (11.5-14.5) % Lymph # (Auto) 1.14 L (1.20-3.40) K/uL [place] # (Auto) 0.71 H (0.11-0.59) K/uL BUN (6-23) mg/dl BUN/Creatinine Ratio (10-20) POC Glucose 113 H 127 H (70-99) mg/dl Calcium (8.6-10.3) mg/dl TIBC (250-450) mcg/dl Alkaline Phosphatase (34-104) U/L Total Protein (6.0-8.3) gm/dl Albumin (3.4-5.0) gm/dl Lipase (11-82) U/L Diagnostic Findings Chest X-Ray 01/15/24 14:00 XR chest 2V PA/lateral HISTORY: 78 years-old Male Dyspnea acute shortness of breath COMPARISON: 06/27/2022 TECHNIQUE: AP and lateral views of the chest FINDINGS: Hypoinflation. Heart size upper limits of normal in size. Bronchovascular crowding. No pneumothorax or pleural effusion. The bones appear intact. IMPRESSION: Hypoinflation without acute process identified. ACT 112: Negative or not required by law. The above report was generated using voice recognition software. It may contain grammatical, syntax or spelling errors. Electronically signed by: Nestor Smith M.D. 01/15/2024 3:53 PM KUB X-Ray 01/15/24 14:00 KUB CLINICAL HISTORY: Ascites/Abdominal Pain COMPARISON STUDY: None. FINDINGS: The bowel gas pattern is normal. The amount of stool is within normal limits. There is moderate vascular calcification. A few small peripherally calcified densities within the abdomen and pelvis are benign. IMPRESSION: No evidence for a bowel obstruction. ACT 112: Negative or not required by law. Electronically signed by: Daryl Mercado M.D. 01/15/2024 3:32 PM Abdomen Ultrasound 01/15/24 14:26 US abdomen ltd ascites CLINICAL HISTORY: Marking for Paracentesis in ED COMPARISON STUDY: None. FINDINGS: Transabdominal scanning of the abdomen was performed with career representative images submitted. There is a small amount of ascites seen scattered throughout the abdomen. This was not marked for paracentesis due to the lack of an adequate sized pocket. IMPRESSION: Small amount of ascites. ACT 112: Negative or not required by law. Electronically signed by: Mack Hadley M.D. 01/15/2024 3:25 PM Abdomen/Pelvis CT 01/15/24 14:[address] WITHOUT CONTRAST CT DOSE: 1516.75 mGy.cm HISTORY: Eval ascites TECHNIQUE: Multiaxial CT images of the abdomen and pelvis were performed without contrast. A dose lowering technique was utilized adhering to the principles of ALARA. COMPARISON STUDY: None. FINDINGS: A 3 mm nodule within the right middle lobe on image 11. A 3 mm nodule within the lingula on image 37. No pneumoperitoneum. No pneumatosis. Old bilateral rib fractures. Moderate coronary artery calcifications. 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 Moderate body wall edema. There is a 1 cm anterior pericardial lymph node. Heterogeneous appearance to the left hepatic lobe which is suboptimally assessed on this noncontrast study. This raises the possibility of an infiltrative mass within the left hepatic lobe versus multiple masses. Dominant focal masslike hypodensity on image 72 measures 5.4 cm. The unenhanced spleen, adrenal glands, and pancreas are unremarkable. There is a punctate stone within the left kidney. No right renal calculi. No ureteral calculi. No hydronephrosis. Cholelithiasis. No gallbladder wall thickening. Abnormal previous the main portal vein raising the possibility of renal vein thrombosis. This is nondiagnostic on this noncontrast study. There are few mildly enlarged periportal lymph nodes which are nonspecific. Calcified plaque within the normal caliber abdominal aorta. Scattered small to moderate amount of ascites. There are few scattered calcifications within the abdomen and pelvis. Normal bladder. Small right inguinal hernia containing fat and fluid. Colonic diverticulosis. No evidence for acute diverticulitis. No bowel wall thickening or obstruction. Diffuse mesenteric edema is noted. IMPRESSION: 1. Small to moderate amount of scattered ascites. 2. Heterogeneous appearance to the left hepatic lobe which is suboptimally assessed on this noncontrast study. This raises the possibility of an infiltrative mass within the left hepatic lobe versus multiple masses. Dominant focal masslike hypodensity measures 5.4 cm. Dedicated liver ultrasound recomm ended for further evaluation. 2. Abnormal appearance to the main portal vein which may be thrombosed. This should be assessed with a dedicated duplex ultrasound of the portal vein. 4. Cholelithiasis. No gallbladder wall thickening. 5. Left-sided nephrolithiasis. No hydronephrosis. 6. No definite bowel wall thickening or obstruction. 7. Moderate body wall edema. 8. Subcentimeter nodules at the lung bases measuring 3 mm. One year follow up recommended to ensure stability. ACT 112: Negative or not required by law. Electronically signed by: Mack Hadley M.D. 01/15/2024 6:31 PM Chest CTA 01/16/24 16:23 CT ANGIOGRAPHY OF THE CHEST, PULMONARY EMBOLUS PROTOCOL CLINICAL HISTORY: hepatocellular cancer, dyspnea, eval PE/mets/etc COMPARISON STUDY: Chest radiograph January 15, 2024. TECHNIQUE: Following IV administration of 88 mL of Optiray, helical axial images of the chest were obtained utilizing the pulmonary embolus protocol. Maximal intensity projections and sagittal and coronal reformats were viewed on an independent 3D workstation. IV contrast was administered without complication. Automated exposure control was utilized for the study. A dose lowering technique was utilized adhering to the principles of ALARA. CT DOSE: 829.33 mGy.cm FINDINGS: No pulmonary emboli are identified. There is no thoracic aortic dissection. Size of the heart is normal. There is no pericardial effusion. Moderate coronary artery calcification is present. No enlarged axillary, mediastinal or hilar lymph nodes are present. There is no pneumothorax or pleural effusion. There is no consolidation to suggest pneumonia. A few tiny pulmonary nodules are noted. These include a 4 mm lingular nodule on image 114 of 237 and a 4 mm subpleural right lower lobe nodule on image 138. There are no suspicious lesions within the bony defect. Moderate upper abdominal ascites is present. Left hepatic lobe hypodense mass-like abnormalities measure up to a pproximately 6.8 cm. There is a gallstone within the gallbladder. Abnormal appearance of the main portal vein is again noted. IMPRESSION: 1. No pulmonary emboli identified. 2. No acute intrathoracic findings. 3. A few small low suspicion pulmonary nodules measuring up to 4 mm. A follow-up chest CT in 6 months to ensure stability is recommended. 4. Heterogeneous appearance of the left hepatic lobe with underlying masses which would be consistent with the provided history of hepatocellular carcinoma. Moderate upper abdominal ascites. Possible main portal vein thrombus. ACT 112: Negative or not required by law. Electronically signed by: Daryl Mercado M.D. 01/16/2024 5:39 PM PG Care Time/CCT Total # of Minutes Spent Total Time Spent with Patient: Total time spent is greater than 50% in coordination of care (as documented) at patient's floor/unit and/or counseling patient: Coding Level of Care Code 71028 SUB INP/OBS CARE 3/50MIN Diagnoses Liver cancer C22.9 Abdominal pain R10.84 Abdominal location: generalized Abdominal ascites R18.8 Portal vein thrombosis I81 SOB (shortness of breath) R06.02 Type 2 diabetes mellitus E11.9 Tobacco use Z72.0 Hypertension I10 GERD (gastroesophageal reflux disease) K21.9 Neuropathy due to type 2 diabetes mellitus E11.40 (2) Abdominal pain Abdominal location: generalized Qualified Code(s): R10.84 - Generalized abdominal pain
[2024-01-16] MEDS: OPTIRAY 320 125ml IV ONE (17:20)
[2024-01-16] MEDS: UMECLIDINIUM BROMIDE 62.5MCG/BLISTER 7 PUFFS/INHALER INH SCH (17:41)
[2024-01-16] MEDS: NICOTINE 21 MG/24 HR TDSY TD SCH (17:41)
[2024-01-16] MEDS: FLUTICASONE/VILANTEROL 100/25MCG 14 PUFFS/INHALER INH SCH (17:42)
--- NOTE | 2024-01-16 17:42 | CT Scan Report ---
CT ANGIOGRAPHY OF THE CHEST, PULMONARY EMBOLUS PROTOCOL CLINICAL HISTORY: hepatocellular cancer, dyspnea, eval PE/mets/etc COMPARISON STUDY: Chest radiograph January 15, 2024. TECHNIQUE: Following IV administration of 88 mL of Optiray, helical axial images of the chest were ob tained utilizing the pulmonary embolus protocol. Maximal intensity projections and sagittal and anita nal reformats were viewed on an independent 3D workstation. IV contrast was administered without com plication. Automated exposure control was utilized for the study. A dose lowering technique was uti lized adhering to the principles of ALARA. CT DOSE: 829.33 mGy.cm FINDINGS: No pulmonary emboli are identified. There is no thoracic aortic dissection. Size of the he art is normal. There is no pericardial effusion. Moderate coronary artery calcification is present. N o enlarged axillary, mediastinal or hilar lymph nodes are present. There is no pneumothorax or pleura l effusion. There is no consolidation to suggest pneumonia. A few tiny pulmonary nodules are noted. T hese include a 4 mm lingular nodule on image 114 of 237 and a 4 mm subpleural right lower lobe nodule on image 138. There are no suspicious lesions within the bony defect. Moderate upper abdominal ascit es is present. Left hepatic lobe hypodense mass-like abnormalities measure up to approximately 6.8 cm . There is a gallstone within the gallbladder. Abnormal appearance of the main portal vein is again n oted. IMPRESSION: 1. No pulmonary emboli identified. 2. No acute intrathoracic findings. 3. A few small low suspicion pulmonary nodules measuring up to 4 mm. A follow-up chest CT in 6 months to ensure stability is recommended. 4. Heterogeneous appearance of the left hepatic lobe with underlying masses which would be consistent with the provided history of hepatocellular carcinoma. Moderate upper abdominal ascites. Possible ma in portal vein thrombus. ACT 112: Negative or not required by law. Electronically signed by: Daryl Mercado M.D. 01/16/2024 5:39 PM
[2024-01-16] MEDS ORDERED: Heparin IV Adult Wt-Based Standard *NO* INITIAL Bolus Protocol IV SCH (18:14)
[2024-01-16] MEDS: ACETAMINOPHEN 500 MG TAB PO SCH (21:02)
[2024-01-16 21:58] LABS: Basophils # (auto) 0.02 K/uL (0.00-0.20); Basophils % (auto) 0.3 %; Eosinophils # (auto) 0.06 K/uL (0.00-0.50); Hematocrit (blood only) 31.4 % (42.0-52.0); Immature Granulocytes # (auto) 0.01 K/uL (0.01-0.20); Immature Granulocytes % (auto) 0.2 %; Lymphocytes # (auto) 1.14 K/uL (1.20-3.40); Lymphocytes % (auto) 19.6 %; Mean Corpuscular Hemoglobin 28.2 pg (25.0-34.0); Mean Corpuscular Hgb Conc 31.8 g/dL (32.0-36.0); Mean Corpuscular Volume 88.5 fL (80.0-100.0); Mean Platelet Volume 11.2 fL (9.4-12.4); Monocytes # (auto) 0.71 K/uL (0.11-0.59); Monocytes % (auto) 12.2 %; Neutrophils # (auto) 3.87 K/uL (1.40-6.50); Neutrophils % (auto) 66.7 %; Platelet Count 152 K/uL (130-400); RDW Coefficient of Variation 16.7 % (11.5-14.5); Red Blood Count 3.55 M/uL (4.70-6.10); White Blood Count 5.81 K/ul (4.8-10.8)
[2024-01-16 22:05] LABS: Partial Thromboplastin Ratio 0.9; Partial Thromboplastin Time 25 Seconds (21-31); Prothrombin Time 11.3 Seconds (9.0-12.0)
[2024-01-16] MEDS: HEPARIN SODIUM/DEXTROSE 25,000 UNITS/500 ML BAG IV SCH (22:13)
[2024-01-17 05:59] LABS: Basophils # (auto) 0.03 K/uL (0.00-0.20); Basophils % (auto) 0.4 %; Eosinophils # (auto) 0.13 K/uL (0.00-0.50); Eosinophils % (auto) 1.9 %; Hematocrit (blood only) 29.5 % (42.0-52.0); Hemoglobin 9.2 g/dl (14.0-18.0); Immature Granulocytes # (auto) 0.02 K/uL (0.01-0.20); Immature Granulocytes % (auto) 0.3 %; Lymphocytes # (auto) 1.45 K/uL (1.20-3.40); Lymphocytes % (auto) 21.2 %; Mean Corpuscular Hemoglobin 27.3 pg (25.0-34.0); Mean Corpuscular Hgb Conc 31.2 g/dL (32.0-36.0); Mean Corpuscular Volume 87.5 fL (80.0-100.0); Mean Platelet Volume 11.1 fL (9.4-12.4); Monocytes # (auto) 0.87 K/uL (0.11-0.59); Monocytes % (auto) 12.7 %; Neutrophils # (auto) 4.35 K/uL (1.40-6.50); Neutrophils % (auto) 63.5 %; Platelet Count 143 K/uL (130-400); RDW Coefficient of Variation 16.7 % (11.5-14.5); RDW Standard Deviation 53.6 fL (36.4-46.3); Red Blood Count 3.37 M/uL (4.70-6.10); White Blood Count 6.85 K/ul (4.8-10.8)
[2024-01-17 06:08] LABS: Albumin Globulin Ratio 0.8 (0.9-2); Albumin Level 2.6 gm/dl (3.4-5.0); BUN Creatinine Ratio 24.7 (10-20); Bilirubin,Total 0.6 mg/dl (0.2-1.0); Calcium 8.3 mg/dl (8.6-10.3); Creatinine Clr Calc Pharmacy 72.9 ml/min; Est GFR (African American) 92.1 ml/min; Est GFR (Non-African American) 79.5 ml/min; Globulin 3.2 gm/dl (2.5-4.0); Potassium 4.2 mmol/L (3.5-5.1); Total Protein 5.8 gm/dl (6.0-8.3)
[2024-01-17 06:15] LABS: ANTI-Xa, UFH(UnfractionatedHep 0.32 IU/ml (0.3-0.7)
[2024-01-17] MEDS ORDERED: oxyCODONE HCL IR 5 MG TAB (IMMEDIATE RELEASE) PO PRN (11:11)
--- NOTE | 2024-01-17 11:17 | Hospitalist Progress Note ---
Date of Service January 17, 2024 Assessment & Plan (1) Liver cancer: Plan: left lobe of liver recent dx at [facility], biopsy katie was told he was not a candidate for surgical resection we do not have any of his [facility] records from [place], but his family are good historians appreciate Dr Frias's consult appreciate Dr Looney's consult per Dr Frias could consider immunotherapy Rx for his cancer if he desired such however, he does NOT want any treatment of his cancer he was consistent yesterday & today that he wishes to simply be comfortable we discussed hospice in detail and he is agreeable to such wishes to have hospice at his home will involve social work to assist with setting up home hospice services in meantime focus on pain control - * start fentanyl patch 12mcg q3d * change oxy to 5mg q4h prn for mild-mod pain * add oxy 10mg q4h prn severe pain * morphine IV prn for refractory pain * if we cannot get his pain under control with the above consider inpatient hospice status * once heparin is off can give a couple of doses of toradol; renal function is intact at this point we can stop routine vitals, telemetry monitoring, heparin drip - comfort care pathway (2) Abdominal pain: Plan: likely multifactorial - the liver mass itself causing capsular stretch and pain; ascites (if malignant, although cytologies by the daughter's report was negative); PVT; gaseous distension from QID lactulose; etc. stopped lactulose start fentanyl patch oxy prn morphine prn tylenol 1gm TID (LFTs are stable, no mention of any cirrhosis on any imaging study) toradol x a few doses keep on bowel regimen (senna, miralax) (3) Abdominal ascites: Plan: could be 2nd to PVT could still be malignancy related despite the negative cytologies (could have been a false negative path) I do not have fluid studies from [facility] to calculate a SAAG by report his fluid analysis of his peritoneal fluid did not show SBP although he has reaccumulated fluid since the [facility] (he got home from the [place] earlier this week) the amount of fluid on current imaging is mild-moderate only it is odd that he only got 2-4 hours of pain relief following his recent taps in [place] this is not typical this would argue that other things (the liver mass itself, gaseous distension from lactulose, etc) are contributing to his pain as well if the ascites is malignant it will have poor response to diuretic therapy (exudative rather than transudative fluid does not respond well to diuretics) (4) Portal vein thrombosis: Plan: CT imaging from [facility] 12/30/23 showed PVT Imaging here highly suspicious for PVT as well Likely due to malignancy Started heparin drip for such yesterday but given the transition to hospice and patient not wanting blood draws, etc will stop it PVT could be contributing to his abdominal pain PVT could be causing ascites accumulation (5) SOB (shortness of breath): Plan: CTA chest negative for PE, metastatic disease, or pneumonia Suspect he has some underlying COPD from his long-standing tobacco use Suspect he has some dyspnea due to the abdominal bloating from his intra- abdominal processes Cont spiriva daily Cont Breo daily O2 as needed Pain meds will help with dyspnea as well (6) Type 2 diabetes mellitus: Plan: Hold metformin, semaglutide Cont Lantus and novolog for now but closer to d/c home would stop such (7) Tobacco use: Plan: Current everyday tobacco cigarette smoker nicotine patch 21mg/day ordered (8) Hypertension: Plan: BPs are low at times on a very tiny dose of metoprolol Will stop the metoprolol (9) GERD (gastroesophageal reflux disease): Plan: add PPI (10) Neuropathy due to type 2 diabetes mellitus: Plan: cont lyrica 150mg BID this may help his abd pain as well Plan grandson updated at bedside yesterday daughter extensively updated at bedside today topics discussed - CT results, problems identified, goals of care, palliative care/hospice, pain control plan, post-discharge plan (home w/ hospice), etc very complex and lengthy discussion/visit care d/w case management d/c tele; transfer to med/surg total time today about 80 minutes Admission and Anticipated Discharge Date Admission Date: January 15, 2024 Subjective patient with ongoing pain in his abdomen pain meds do work when he receives them ate a good breakfast this am; this did NOT cause pain passing flatus has had ongoing issues with constipation dyspnea continues but not requiring any oxygen this am his daughter was present during the entire visit he told me consistently throughout the visit that he does NOT want any chemotherapy/immunotherapy for his liver cancer he does not want to be a burden on his children (has 3 children; he currently lives with his son, another daughter lives next door, and another daughter lives in [place]) multiple grand-children we discussed hospice in detail he wishes to at home - that is his wish he is interested in hospice we discussed the focus of his care moving forward will be pain control and maintaining comfort daughter confirms that her father has been very consistent with telling the family he does not want cancer treatment for his liver cancer Review of Systems Review of Systems: gen - did not sleep well last night due to pain cv - no chest pain pulm - dyspnea - ongoing; dry cough present GI - ongoing pain & bloating but no nausea or emesis - voiding w/o LUTS Physical Exam Physical Exam: gen - awake, alert, able to have full conversation; lying in bed eyes - no icterus mouth - MMM neck - no JVD heart - RRR, s1 s2, no murmur lungs - left basilar rales still present, scattered wheezes especially anteriorly, no tachypnea abd - distension present - unchanged from prior exam; no tenderness to palpation, BS+, no HSM ext - no edema, pulses 2+ b/l psych - a/o x 3 Results & Data Results & Data Vital Signs (Past 12 Hours) Vital Signs Temp Pulse Pulse Resp BP BP Pulse Ox 01/17/24 07:27 36.5 C 91 H 18 102/64 95 01/17/24 07:00 86 01/17/24 02:53 36.5 C 91 H 20 138/79 97 O2 Del Method O2 Flow Rate 01/17/24 07:27 Nasal Cannula 2 01/17/24 07:00 01/17/24 02:53 Nasal Cannula 2 Laboratory Results Laboratory Results - last 24 hr 01/16/24 01/16/24 01/16/24 16:59 19:56 21:06 WBC 5.81 RBC 3.55 L Hgb 10.0 L Hct 31.4 L MCV 88.5 MCH 28.2 MCHC 31.8 L RDW Std Deviation 54.0 H RDW Coeff of Maurice 16.7 H Plt Count 152 MPV 11.2 Immature Gran % (Auto) 0.2 Neut % (Auto) 66.7 Lymph % (Auto) 19.6 Smith % (Auto) 12.2 Eos % (Auto) 1.0 Baso % (Auto) 0.3 Neut # (Auto) 3.87 Lymph # (Auto) 1.14 L Smith # (Auto) 0.71 H Eos # (Auto) 0.06 Baso # (Auto) 0.02 Immature Gran # (Auto) 0.01 PT 11.3 INR 1.0 APTT 25 PTT Ratio 0.9 Heparin Anti-Xa, Unfract Sodium Potassium Chloride Carbon Dioxide Anion Gap BUN Creatinine Est Cr Clr Drug Dosing Est GFR ( Amer) Est GFR (Non-Af Amer) BUN/Creatinine Ratio Glucose POC Glucose 156 H 113 H Calcium Total Bilirubin AST ALT Alkaline Phosphatase Ammonia Total Protein Albumin Globulin Albumin/Globulin Ratio 01/16/24 01/17/24 01/17/24 22:02 05:30 08:18 WBC 6.85 RBC 3.37 L Hgb 9.2 L Hct 29.5 L MCV 87.5 MCH 27.3 MCHC 31.2 L RDW Std Deviation 53.6 H RDW Coeff of Maurice 16.7 H Plt Count 143 MPV 11.1 Immature Gran % (Auto) 0.3 Neut % (Auto) 63.5 Lymph % (Auto) 21.2 Smith % (Auto) 12.7 Eos % (Auto) 1.9 Baso % (Auto) 0.4 Neut # (Auto) 4.35 Lymph # (Auto) 1.45 Smith # (Auto) 0.87 H Eos # (Auto) 0.13 Baso # (Auto) 0.03 Immature Gran # (Auto) 0.02 PT INR APTT PTT Ratio Heparin Anti-Xa, Unfract 0.32 Sodium 136 Potassium 4.2 Chloride 104 Carbon Dioxide 28 Anion Gap 4 BUN 23 Creatinine 0.93 Est Cr Clr Drug Dosing 72.9 Est GFR ( Amer) 92.1 Est GFR (Non-Af Amer) 79.5 BUN/Creatinine Ratio 24.7 H Glucose 93 POC Glucose 127 H 82 Calcium 8.3 L Total Bilirubin 0.6 AST 26 ALT 18 Alkaline Phosphatase 156 H Ammonia 46.0 Total Protein 5.8 L Albumin 2.6 L Globulin 3.2 Albumin/Globulin Ratio 0.8 L PG Care Time/CCT Total # of Minutes Spent Total Time Spent with Patient: Total time spent is greater than 50% in coordination of care (as documented) at patient's floor/unit and/or counseling patient: Prolonged Care Time Prolonged Care Time: Yes Total Prolonged Care Time: 80 Coding Level of Care Code 86920 SUB INP/OBS CARE 3/50MIN (25 - SIGNIFICANT, SEPARATELY IDENTIFIABLE ) Diagnoses Liver cancer C22.9 Abdominal pain R10.84 Abdominal location: generalized Abdominal ascites R18.8 Portal vein thrombosis I81 SOB (shortness of breath) R06.02 Type 2 diabetes mellitus E11.9 Tobacco use Z72.0 Hypertension I10 GERD (gastroesophageal reflux disease) K21.9 Neuropathy due to type 2 diabetes mellitus E11.40 Additional Codes Prolonged Care Time - Prolonged Care Time: Yes ([id number]) (2) Abdominal pain Abdominal location: generalized Qualified Code(s): R10.84 - Generalized abdominal pain
[2024-01-17] MEDS: fentaNYL 12 MCG/HR TDSY TD SCH (13:23)
[2024-01-17] MEDS: PANTOprazole 40 MG TAB PO SCH (13:23)
[2024-01-17] MEDS: oxyCODONE HCL IR 5 MG TAB (IMMEDIATE RELEASE) PO PRN (16:01)
[2024-01-17] MEDS: CHECK fentaNYL PATCH PLACEMENT SCH (16:27)
[2024-01-17] MEDS: MoRPHine SULFATE 2 MG/ML CARP IV PRN (17:18)
--- NOTE | 2024-01-18 14:29 | Hospitalist Progress Note ---
Date of Service January 18, 2024 Assessment & Plan (1) Liver cancer: Plan: left lobe of liver recent dx at [facility], biopsy proven was told he was not a candidate for surgical resection we do not have any of his [facility] records from [place], but his family are good historians appreciate Dr Frias's consult appreciate Dr Looney's consult per Dr Frias could consider immunotherapy Rx for his cancer if he desired such however, he does NOT want any treatment of his cancer he consistently has stated he simply wants to be comfortable thus, he will return home with hospice services in place at discharge social work aware * cont fentanyl patch 12mcg q3d * cont oxy 10mg q4h prn pain * morphine IV prn for refractory pain * bowel regimen (2) Abdominal pain: Plan: likely multifactorial - the liver mass itself causing capsular stretch and pain; ascites (if malignant, although cytologies by the daughter's report was negative); PVT; gaseous distension from QID lactulose; etc. pain IMPROVED with institution of fentanyl patch + oxy prn cont both without adjustments today morphine prn for any refractory pain tylenol 1gm TID (LFTs are stable, no mention of any cirrhosis on any imaging study) keep on bowel regimen (senna, miralax) (3) Abdominal ascites: Plan: could be 2nd to PVT could still be malignancy related despite the negative cytologies (could have been a false negative path) I do not have fluid studies from [facility] to calculate a SAAG by report his fluid analysis of his peritoneal fluid did not show SBP if the ascites is malignant it will have poor response to diuretic therapy (exudative rather than transudative fluid does not respond well to diuretics) (4) Portal vein thrombosis: Plan: CT imaging from [facility] 12/30/23 showed PVT Imaging here highly suspicious for PVT as well Likely due to malignancy Started heparin drip for such initially but have stopped it due to transition to hospice (5) SOB (shortness of breath): Plan: CTA chest negative for PE, metastatic disease, or pneumonia Suspect he has some underlying COPD from his long-standing tobacco use Suspect he has some dyspnea due to the abdominal bloating from his intra- abdominal processes Breathing improved today Cont spiriva daily Cont Breo daily O2 as needed Pain meds will help with dyspnea as well (6) Type 2 diabetes mellitus: Plan: Holding metformin, holding semaglutide Cont Lantus and novolog for now but closer to d/c home would stop such (7) Tobacco use: Plan: Current everyday tobacco cigarette smoker nicotine patch 21mg/day ordered (8) Hypertension: Plan: BPs are low at times on a very tiny dose of metoprolol metoprolol stopped (9) GERD (gastroesophageal reflux disease): Plan: PPI (10) Neuropathy due to type 2 diabetes mellitus: Plan: cont lyrica 150mg BID Plan I updated the pt's daughter this evening by phone dispo - home with hospice services Admission and Anticipated Discharge Date Admission Date: January 15, 2024 Subjective patient reports pain is MUCH better today using oxycodone prn breakthrough and it does relief his pain no vomiting no nausea tolerating meals he has an appetite dyspnea much better today was able to sleep better last pm Review of Systems Review of Systems: cv - no cp, no orthopnea pulm - no dyspnea at rest GI - had 2 BMs this am Physical Exam Physical Exam: gen - awake, alert, MUCH MORE comfortable today mouth - MMM neck - no JVD heart - RRR, s1 s2, no murmur lungs - mild rales L base, otherwise CTA b/l abd - distension present - unchanged from prior exam; nontender; BS+, no HSM ext - no edema, pulses 2+ b/l psych - a/o x 3 Results & Data Results & Data Vital Signs (Past 12 Hours) Vital Signs Temp Pulse Resp BP Pulse Ox O2 Del Method O2 Flow Rate 01/18/24 11:00 36.6 C 90 18 113/73 93 Room Air 01/18/24 07:35 36.5 C 83 18 111/70 93 Room Air 01/18/24 07:00 Room Air 01/18/24 03:38 36.5 C 68 20 114/73 96 Nasal Cannula 2 Laboratory Results Laboratory Results - last 24 hr 01/17/24 01/17/24 01/17/24 17:05 17:06 18:25 POC Glucose 343 H* 376 H* 346 H* 01/17/24 01/18/24 01/18/24 19:54 08:15 12:07 POC Glucose 265 H 153 H 202 H PG Care Time/CCT Total # of Minutes Spent Total Time Spent with Patient: Total time spent is greater than 50% in coordination of care (as documented) at patient's floor/unit and/or counseling patient: Coding Level of Care Code 07592 SUB INP/OBS CARE 235MIN Diagnoses Liver cancer C22.9 Abdominal pain R10.84 Abdominal location: generalized Abdominal ascites R18.8 Portal vein thrombosis I81 SOB (shortness of breath) R06.02 Type 2 diabetes mellitus E11.9 Tobacco use Z72.0 Hypertension I10 GERD (gastroesophageal reflux disease) K21.9 Neuropathy due to type 2 diabetes mellitus E11.40 (2) Abdominal pain Abdominal location: generalized Qualified Code(s): R10.84 - Generalized abdominal pain
[2024-01-18] MEDS: oxyCODONE HCL IR 5 MG TAB (IMMEDIATE RELEASE) PO PRN (17:03)
[2024-01-19 07:54] VITALS: RESP 18
[2024-01-19] MEDS: LANTUS PER UNIT CHARGE SQ SCH (09:40)
[2024-01-19 11:31] VITALS: BP 95/63; PULSE 92; TEMP 97.5; O2SAT 92
--- NOTE | 2024-01-19 15:14 | Discharge Summary ---
Discharge Summary Date of Service January 19, 2024 Principal Dx & Hospital Course #1 = Principal Diagnosis (1) Liver cancer: left lobe of liver recent dx at [facility], biopsy proven was told he was not a candidate for surgical resection we do not have any of his [facility] records from [place], but his family are good historians appreciate Dr Frias's consult appreciate Dr Looney's consult per Dr Frias could consider immunotherapy Rx for his cancer if he desired such however, he does NOT want any treatment of his cancer he consistently has stated he simply wants to be comfortable thus, he will return home with hospice services in place at discharge social work aware * cont fentanyl patch 12mcg q3d * cont oxy 10mg q4h prn pain * morphine IV prn for refractory pain * bowel regimen (2) Abdominal pain: likely multifactorial - the liver mass itself causing capsular stretch and pain; ascites (if malignant, although cytologies by the daughter's report was negative); PVT; gaseous distension from QID lactulose; etc. pain IMPROVED with institution of fentanyl patch + oxy prn cont both without adjustments today morphine prn for any refractory pain tylenol 1gm TID (LFTs are stable, no mention of any cirrhosis on any imaging study) keep on bowel regimen (senna, miralax) (3) Abdominal ascites: could be 2nd to PVT could still be malignancy related despite the negative cytologies (could have been a false negative path) I do not have fluid studies from [facility] to calculate a SAAG by report his fluid analysis of his peritoneal fluid did not show SBP if the ascites is malignant it will have poor response to diuretic therapy (exudative rather than transudative fluid does not respond well to diuretics) (4) Portal vein thrombosis: CT imaging from [facility] 12/30/23 showed PVT Imaging here highly suspicious for PVT as well Likely due to malignancy Started heparin drip for such initially but have stopped it due to transition to hospice (5) SOB (shortness of breath): CTA chest negative for PE, metastatic disease, or pneumonia Suspect he has some underlying COPD from his long-standing tobacco use Suspect he has some dyspnea due to the abdominal bloating from his intra- abdominal processes Breathing improved today Cont spiriva daily Cont Breo daily O2 as needed Pain meds will help with dyspnea as well (6) Type 2 diabetes mellitus: Holding metformin, holding semaglutide Cont Lantus and novolog for now but closer to d/c home would stop such (7) Tobacco use: Current everyday tobacco cigarette smoker nicotine patch 21mg/day ordered (8) Hypertension: BPs are low at times on a very tiny dose of metoprolol metoprolol stopped (9) GERD (gastroesophageal reflux disease): PPI (10) Neuropathy due to type 2 diabetes mellitus: cont lyrica 150mg BID Plan I updated the pt's daughter this evening by phone dispo - home with hospice services Admission HPI Per Admitting Provider Anibal is a 78-year-old male with PMH of liver cancer, abdominal ascites, HLD, HLD, T2DM, GERD, HTN, osteoarthritis, and tobacco use. He presented on 01/14 for SOB and abdominal distention. Recent diagnosis of liver cancer 3 weeks ago; on December 29, he was transferred from the [facility] in [place] to [place] where he was hospitalized; paracentesis x 2 to have fluid removed. Patient's daughter (Beth) is at the bedside and provides most the history. She reports that he had 2 weeks of abdominal pain prior to going to the [facility]. While in [place], the patient was then diagnosed with primary liver cancer in the left lobe; nonoperable. Biopsy was taken at that time. EGD was done, and daughter reports that it came back without esophageal varices. She does not believe that portal vein thrombosis or blood thinners were discussed at that time. Upon discharge, daughter reports that the discharge paperwork was unclear and they were waiting to hear her options moving forward (chemo, palliative care, goals of care discussions). 5 days later the patient is having trouble breathing and intractable abdominal pain, so they decided to come here. The patient endorses 8/10 RLQ abdominal pain with radiation to the back; 10/10 at worst. He describes it as a stabbing pain. He has been taking THC Gummies at home for the pain, he does have oxycodone but has not been taking it. The pain is actually better when he lies on his back. Eating does not exacerbate pain. No recent change in diet. He does not weigh himself daily and is unsure of weight gain. Associated symptoms include SOB, which patient attributes to fluid in the abdomen pressing on his lungs. No supplemental oxygen at baseline; no CPAP at night. Patient took all his regular morning medications today; except for his Lantus. He lives with his son who helps to manage medications at home. He recently finished a course of Doxy. Per daughter, he has been oscillating rec ently between constipation and diarrhea. She also reports he has had a significant decrease in mobility over the past few weeks due to fatigue, lower extremity weakness, and dyspnea on exertion. No history of CHF to daughter's knowledge. Both the patient and patient's daughter would like to have goals of care discussion while they are in the hospital. The patient states planning that his quality of life is more important than his quantity of life, and that his most important goals at this time are to be comfortable, able to breathe, and at home with his family. SpO2 100% on 2L NC. Patient's vitals are stable at time of admission. ED course: Lantus 66u SQ Pantoprazole 40 mg IV Zofran 4 mg IV ROS: Patient endorses abdominal pain, SOB at rest and with exertion, productive cough (unsure of hemoptysis), fatigue, constipation-->diarrhea, and LE weakness. Patient denies fever, chills, night-sweats, headache, chest pain, pleuritic CP, orthopnea, melena, or blood in the urine/stool. Discharge Exam gen - awake, alert, MUCH MORE comfortable today mouth - MMM neck - no JVD heart - RRR, s1 s2, no murmur lungs - mild rales L base, otherwise CTA b/l abd - distension present - unchanged from prior exam; nontender; BS+, no HSM ext - no edema, pulses 2+ b/l psych - a/o x 3 Discharge Plan Discharge Items Patient Disposition: Hospice - Home Reason For Visit: LIVER CANCER, ABDOMINAL PAIN Discharge Diagnosis: 1. liver cancer 2. abdominal pain - likely multiple causes including the liver cancer itself, portal vein thrombosis (blood clot of the portal vein), the ascites fluid, etc - improved 3. portal vein thrombosis 4. diabetes 5. shortness of breath - improved Activity: As commented below Activity Comment: as desired/as tolerated Non-emergency contact: Primary Care Provider Call non-emergency contact if: you have any medication questions, your symptoms worsen, your pain is not controlled, your pain is worsening and your pain is unusual for you Follow-up/Referrals: [facility] [Non-Staff] - (please call [facility] for any questions, concerns, needs, uncontrolled pain or other symptoms) [facility] [Primary Care Provider] - Diet: Regular Addtl Attending Provider Instructions: Mr Calle, You were hospitalized due to having ongoing abdominal pain, abdominal distension/bloating, and difficulty breathing. You had just been hospitalized at the [facility] and while here they had diagnosed you with liver cancer and ascites (fluid build-up in the abdominal cavity). Your abdominal pain is likely due to multiple causes including the cancer itself causing pain, the ascites, the blood clot in the portal vein, recent issues with your stool (and too much gas), etc. Our oncologist and palliative care doctors met with you & your family to go over all the options available to you for your care. You expressed great desire to return home and we will be setting you up with Hospice services through [facility]. The focus of your care via Hospice will be to keep your abdominal pain under control, help your breathing be as comfortable as possible, and help you enjoy time with your family & friends in the comforts of your home. I have discontinued various medications that won't provide benefit to you or help with symptom control. The metoprolol, vitamins, metformin, etc (see full list) have been stopped. When people elect to go on Hospice often times we stop things such as checking blood sugars, giving insulin, eating a strict diabetic diet, etc. The choice to stop your insulin or blood sugar checks is up to you. You certainly can continue to take your insulin if you desire. You can liberalize your diet and enjoy eating as you wish. Finally, although you have a blood clot in the abdomen - due to being on Hospice - we can defer on treating the clot with blood thinners. Recommendations - 1. for pain - * fentanyl patch 12mcg - apply to skin and change every 3 days; it is due to be changed TOMORROW, 01/20/24, at about noon-time * oxycodone 5mg tablets - 2 tablets every 4 hours as needed for pain 2. for constipation - * miralax 1 serving daily * sennakot 2 tablets twice daily * you may need other medicines but Hospice can help you with this 3. for anxiety or sleep - * lorazepam 0.5mg every 6 hours as needed 4. for nausea or vomiting - * ondansetron 4mg every 6 hours as needed 5. for your breathing - * Incruse Ellipta - 1 puff once daily * Breo - 1 puff once daily 6. for swelling of your abdomen and/or your legs - * furosemide 40mg every morning NEEDED If you have ANY questions, concerns, problems, needs, uncontrolled symptoms (pain, nausea, breathing difficulty, etc) - please contact [facility]. They will be able to address the majority of your concerns either by phone or via a visit to your home. It was our pleasure caring for you! Enjoy being at home and stay comfortable, -Dr Gloria Pending Studies at Discharge: No Stand-Alone Forms: My [facility] Medications and DC Order Prescriptions: New fentanyl 12 mcg/hr Patch 72 Hour 1 patch transdermal Q3D Qty: 10 0RF fluticasone furoate-vilanterol [Breo Ellipta] 100-25 mcg/dose Blister With Device 1 inh inhalation DAILY Qty: 1 2RF Incruse Ellipta 62.5 mcg/actuation blister with device 1 inh inhalation DAILY Qty: 30 2RF omeprazole 20 mg capsule,delayed release(DR/EC) 20 mg PO DAILY Qty: 30 2RF lorazepam [Ativan] 0.5 mg tablet 0.5 mg PO Q6H PRN (Reason: anxiety or sleep) Qty: 20 0RF oxycodone 5 mg tablet 10 mg PO Q4H PRN (Reason: pain) Qty: 60 0RF Continued sennosides 8.6 mg Tablet 17.2 mg PO BID polyethylene glycol 3350 [Miralax] 17 gram Powder In Packet 17 g PO DAILY capsaicin 0.025 % Cream 1 applic TOPICAL BID PRN (Reason: .flare up) Rx Instructions: do not wash area for at least 30 min after application pregabalin 150 mg Capsule 150 mg PO BID naloxone 8 mg/actuation [place],Non-Aerosol 1 spray INTRANASAL DIRECTED PRN (Reason: .opiod od) Thc Gummies 1 tab PO DIRECTED PRN (Reason: Pain) Changed ondansetron 4 mg tablet,disintegrating 4 mg PO Q6H PRN (Reason: nausea and vomiting) Qty: 14 0RF furosemide 40 mg Tablet 40 mg PO DAILY PRN (Reason: swelling of legs and/or worsening abdominal swelling) Qty: 1 0RF insulin glargine [Lantus Solostar U-100 Insulin] 100 unit/mL (3 mL) Insulin Pen 50 unit SUBCUT DAILY Qty: 0 0RF Discontinued spironolactone 100 mg Tablet 100 mg PO DAILY simvastatin 80 mg Tablet 40 mg PO HS metformin 1,000 mg Tablet 1,000 mg PO BID oxycodone [Roxicodone] 5 mg Tablet 5 mg PO Q6H PRN (Reason: Pain) metoprolol tartrate 25 mg Tablet 12.5 mg PO BID lactulose 10 gram/15 mL Solution 20 g PO QID Rx Instructions: Has been taking less due to to loose stool. PreserVision AREDS 2,148 mcg-113 mg-45 mg-17.4mg Tablet 1 tab PO BID Rx Instructions: administer with AM and PM meals Semaglutide 1mg/0.75 Ml 1 dose SC .WEEKLY Rx Instructions: Q friday Discharge Orders: Discharge Order (Routine); Ordered 01/19/24 Ordered By: Kurtis Gloria Admission Data Admit Date/Time: 01/15/24 18:32 Attending Provider: Kurtis Gloria Admit Provider: Bebeto Putnam Primary Care Provider: [facility] Other Providers: [facility]; Bebeto Putnam; Elizabeth Looney; Jeanine Frias Hospital Stay Data Consultations 01/15/24 17:20 ED Decision to Admit Stat 01/15/24 18:12 Consult Palliative Care Routine 01/15/24 18:13 Consult Oncology Routine Diagnostic Imagining Performed 01/15/24 14:26 US abdomen ltd ascites Stat 01/15/24 14:50 CT Abd and Pelvis [CT abd pelvis wo con] Stat 01/16/24 16:23 CT angio chest PE protocol Urgent Pending Results Patient Have Any Pending Studies at Discharge: No Discharge Instructions Given to Patient (Per Discharging Provider) Mr Calle, You were hospitalized due to having ongoing abdominal pain, abdominal distension/bloating, and difficulty breathing. You had just been hospitalized at the [facility] and while here they had diagnosed you with liver cancer and ascites (fluid build-up in the abdominal cavity). Your abdominal pain is likely due to multiple causes including the cancer itself causing pain, the ascites, the blood clot in the portal vein, recent issues with your stool (and too much gas), etc. Our oncologist and palliative care doctors met with you & your family to go over all the options available to you for your care. You expressed great desire to return home and we will be setting you up with Hospice services through [facility]. The focus of your care via Hospice will be to keep your abdominal pain under control, help your breathing be as comfortable as possible, and help you enjoy time with your family & friends in the comforts of your home. I have discontinued various medications that won't provide benefit to you or help with symptom control. The metoprolol, vitamins, metformin, etc (see full list) have been stopped. When people elect to go on Hospice often times we stop things such as checking blood sugars, giving insulin, eating a strict diabetic diet, etc. The choice to stop your insulin or blood sugar checks is up to you. You certainly can continue to take your insulin if you desire. You can liberalize your diet and enjoy eating as you wish. Finally, although you have a blood clot in the abdomen - due to being on Hospice - we can defer on treating the clot with blood thinners. Recommendations - 1. for pain - * fentanyl patch 12mcg - apply to skin and change every 3 days; it is due to be changed TOMORROW, 01/20/24, at about noon-time * oxycodone 5mg tablets - 2 tablets every 4 hours as needed for pain 2. for constipation - * miralax 1 serving daily * sennakot 2 tablets twice daily * you may need other medicines but Hospice can help you with this 3. for anxiety or sleep - * lorazepam 0.5mg every 6 hours as needed 4. for nausea or vomiting - * ondansetron 4mg every 6 hours as needed 5. for your breathing - * Incruse Ellipta - 1 puff once daily * Breo - 1 puff once daily 6. for swelling of your abdomen and/or your legs - * furosemide 40mg every morning NEEDED If you have ANY questions, concerns, problems, needs, uncontrolled symptoms (pain, nausea, breathing difficulty, etc) - please contact [facility]. They will be able to address the majority of your concerns either by phone or via a visit to your home. It was our pleasure caring for you! Enjoy being at home and stay comfortable, -Dr Gloria Coding Diagnoses Liver cancer C22.9 Abdominal pain R10.84 Abdominal location: generalized Abdominal ascites R18.8 Portal vein thrombosis I81 SOB (shortness of breath) R06.02 Type 2 diabetes mellitus E11.9 Tobacco use Z72.0 Hypertension I10 GERD (gastroesophageal reflux disease) K21.9 Neuropathy due to type 2 diabetes mellitus E11.40
== END 2024-01-19 15:33 | disposition hospice, home (50) | DRG 435 ==
LOC: MERGE 13:47 → ED 13:47 → 2W 18:32 → SUATTDRO 18:32 → 2W 21:02